=== PATIENT | male | born 1945 | race Caucasian/White ===

== ENCOUNTER → 2020-01-17 09:57 | Outpatient (BNVA) | payer MEDICARE, SELFPAY | PROVIDERS: Family Provider Family Medicine; PCP Family Medicine; Visit Provider Surgery | DX: L98.9 Disorder of the skin and subcutaneous tissue, unspecified (principal); Z85.828 Personal history of other malignant neoplasm of skin | CPT/HCPCS: 88304 ==

== ENCOUNTER 2022-10-28 14:11 | Outpatient (CLI) | payer MEDICARE, SELFPAY ==
--- NOTE | 2022-10-28 14:29 | XR_ITS ---
WS: [id number] SCREENING DEXA SCAN [place] CLINICAL INFORMATION: OTHER SPECIFIED DISORDERS OF BD STRUCTURES COMPARISON: None. FINDINGS: The L1-L4 bone mineral density measures 1.235 g/cm2. This corresponds to a T score score of 0.1 and Z score of 0.0. Left femoral neck bone mineral density measures 0.821 g/cm2. This corresponds to a T score of -1.9 an d Z score of -1.5. Right femoral neck bone mineral density measures 0.851 g/cm2. This corresponds to a T score -1.7of an d Z score of -1.3. Mean femoral neck bone mineral density measures 0.836 g/cm2. This corresponds to a T score of -1.8 an d Z score of -1.4. XR/XR DEXA axial skeleton* [id number] IMPRESSION: Normal bone mineralization lumbar spine. Osteopenia femoral necks. Patient's FRAX calculated 10 year probability for major osteoporotic fracture i s 14.6 % and osteoporotic hip fracture is 5.7%.
== END 2022-10-28 14:12 | disposition home or self-care (01) ==
LOC: RAD 14:12
PROVIDERS: PCP Family Medicine; Visit Provider Family Medicine
DX: M85.88 Other specified disorders of bone density and structure, other site (principal)
CPT/HCPCS: 77080

== ENCOUNTER 2023-05-13 13:13 | Outpatient (CLI) | payer MEDICARE, SELFPAY ==
--- NOTE | 2023-05-13 13:50 | XR_ITS ---
WS: [id number] DEXA (DUAL ENERGY X-RAY ABSORPTIOMETRY) Bone mineral density was performed using a [employer] machine. HISTORY: POSTMENOPAUSAL COMPARISON: 10/28/2022 Lumbar spine BMD (L1-L4): 1.144 g/cm2 T score: -0.6 Z score: -0.7 Total hip BMD: Left: 0.813 g/cm2. T score: -2.0 Z score: -1.6 Right: 0.841 g/cm2. T score: -1.8 Z score: -1.4 10 year probability of a major osteoporotic fracture is 17.7%. Compared to the prior study from 10/28/2022. Lumbar spine bone mineral density has decreased by 7.4%. Bilateral hips bone mineral density has decreased by 1.1%. XR/XR DEXA axial skeleton* [id number] IMPRESSION: OSTEOPENIA. Male patient. Significant decrease in bone mineral density within the lumbar spine since the prior study.
== END 2023-05-13 13:14 | disposition home or self-care (01) ==
PROVIDERS: PCP Family Medicine; Visit Provider Family Medicine
DX: M85.88 Other specified disorders of bone density and structure, other site (principal)
CPT/HCPCS: 77080

== ENCOUNTER → 2023-06-24 08:18 | Outpatient (BNVA) | payer MEDICARE, SELFPAY | PROVIDERS: PCP Family Medicine; Visit Provider Dermatology | DX: C44.519 Basal cell carcinoma of skin of other part of trunk (principal); L82.1 Other seborrheic keratosis; D18.01 Hemangioma of skin and subcutaneous tissue; L81.4 Other melanin hyperpigmentation; D48.5 Neoplasm of uncertain behavior of skin; L57.0 Actinic keratosis | CPT/HCPCS: 11102; 11103; 17000; 99203 ==

== ENCOUNTER → 2023-07-15 08:19 | Outpatient (BNVA) | payer MEDICARE, SELFPAY | PROVIDERS: PCP Family Medicine; Visit Provider Dermatology | DX: C44.619 Basal cell carcinoma of skin of left upper limb, including shoulder (principal) | CPT/HCPCS: 12034; 17313 ==

== ENCOUNTER → 2023-07-29 08:18 | Outpatient (BNVA) | payer MEDICARE, SELFPAY | PROVIDERS: PCP Family Medicine; Visit Provider Dermatology | DX: C44.612 Basal cell carcinoma of skin of right upper limb, including shoulder (principal); C44.519 Basal cell carcinoma of skin of other part of trunk | CPT/HCPCS: 11603; 12035; 17313 ==

== ENCOUNTER → 2023-11-17 14:32 | Outpatient (BNVA) | payer MEDICARE, SELFPAY | PROVIDERS: PCP Family Medicine; Visit Provider Dermatology | DX: L57.0 Actinic keratosis (principal); L85.3 Xerosis cutis; L82.1 Other seborrheic keratosis; L81.4 Other melanin hyperpigmentation; Z85.828 Personal history of other malignant neoplasm of skin | CPT/HCPCS: 17000; 99214 ==

== ENCOUNTER 2024-09-12 10:06 | Inpatient (IN) | payer MEDICARE, SELFPAY ==
[2024-09-12] VITALS (11 sets, daily range): BP systolic 108–154; BP diastolic 72–84; PULSE 77–102; RESP 18–24; TEMP 36.8–37.6; O2SAT 90–93; BMI 42.5; BMI 43.8; BMI 43.7
--- NOTE | 2024-09-12 10:36 | XRR_ITS ---
PROCEDURE INFORMATION: Exam: XR Chest Exam date and time: 09/12/2024 10:42 AM Age: 78 years old Clinical indication: Shortness of breath; Additional info: SOB? TECHNIQUE: Imaging protocol: Radiologic exam of the chest. Views: 1 view. COMPARISON: No relevant prior studies available. FINDINGS: Lungs: Bibasilar linear atelectasis versus scarring. No consolidation. Pleural spaces: Blunted right costophrenic sulcus. No large pleural effusion. No pneumothorax. Heart/Mediastinum: Unremarkable. No cardiomegaly. Vasculature: Aortic arch atherosclerotic calcification. Diaphragm: Suspect asymmetric elevation of the right hemidiaphragm. Bones/joints: Thoracic spondylosis. XR/XR chest 1V portable [id number] IMPRESSION: Suspect asymmetric elevation of the right hemidiaphragm with mild basilar atelectasis versus scarring, possible small right pleural effusion.
--- NOTE | 2024-09-12 10:37 | ED_ITS ---
HPI - Extremity Problem 2 General: Chief complaint: Extremity Problem,Nontraumatic Stated complaint: left leg pain, swollen Time Seen by Provider: 09/12/24 10:28 Source: patient Mode of arrival: wheelchair Limitations: no limitations History of Present Illness: Patient is a 78-year-old male who presents to the ED today with a concern that he might be septic . Patient tells me he is having pain to his left lower extremity. He has known lymphedema to the leg from previous trauma and repeated blood clots . Patient does take rivaroxaban daily for this. He reportedly has not missed any doses for this. Patient states he does not see anybody for his leg. He tries to dress his wounds the best he can. He has not seen his primary care provider in over 4 months. He noticed over the last several days the leg has become increasingly red and odorous and weeping. He states he is having subjective fevers and chills. He complains of back pain but states he has chronic back pain. States he has had a little cough but attributes it to his diagnosis of lifelong asthma . Overall patient is a fairly poor historian. MD Complaint: extremity pain and extremity swelling Onset (ago): day(s) Pain Consistency: constant Location: left and lower extremity Radiation: none Relieving factors: nothing Exacerbating factors: nothing Associated symptoms: Reports fever(s) (subjective); Deny chest pain Context: immobilization Related Data Home Medications Medication Instructions Recorded Confirmed albuterol sulfate 90 mcg/actuation 1 puff inhalation DAILY 01/12/20 09/12/24 aerosol inhaler (Ventolin HFA) furosemide 40 mg tablet (Lasix) 40 mg PO DAILY 01/12/20 09/12/24 lovastatin 40 mg tablet 40 mg PO DAILY 01/12/20 09/12/24 nifedipine 60 mg tablet,extended 60 mg PO BID 01/12/20 09/12/24 release 24 hr rivaroxaban 20 mg tablet (Xarelto) 20 mg PO DAILY 01/12/20 09/12/24 tamsulosin 0.4 mg capsule (Flomax) 0.4 mg PO DAILY 01/12/20 09/12/24 bimatoprost 0.01 % eye drops 1 drp ophthalmic (eye) QPM 09/12/24 09/12/24 (Ted) hydrocodone 7.5 mg-ibuprofen 200 1 tab PO Q4H 09/12/24 09/12/24 mg tablet spironolactone 25 mg tablet 25 mg PO DAILY 09/12/24 09/12/24 Allergies Allergy/AdvReac Type Severity Reaction Status Date / Time acetaminophen [From Tylenol] Allergy Unknown Verified 01/26/20 10:23 aspirin Allergy Unknown Verified 01/26/20 10:23 budesonide [From Symbicort] Allergy Unknown Verified 01/26/20 10:23 formoterol [From Symbicort] Allergy Unknown Verified 01/26/20 10:23 Review of Systems 2 Const: Reports: fever(s) (subjective) and chills Card: Denies: chest pain Resp: Reports: non-productive cough; Denies: dyspnea, wheezing, hemoptysis or chest congestion GI: Denies: abdominal pain, nausea, vomiting or diarrhea : Denies: flank pain or dysuria Musc: Reports: back pain (chronic), extremity pain (L LE) and extremity swelling (L LE) Skin/Breast: Reports: erythema (L LE) Neuro: Denies: headache(s) PFSH ED 2 PFSH: Medical History (Updated 09/12/24 @ 13:10 by ADRIÁN Vick) Hypercholesteremia BPH (benign prostatic hyperplasia) History of cervical fracture Hypertension Asthma History of basal cell carcinoma DVT (deep venous thrombosis) Surgical History History of surgery Benign tumor removed from right lower leg History of tonsillectomy History of facial surgery Reconstruction Status post partial removal of lung Resection benign tumor Family History Father Heart disease Denies family history of Anesthesia complication Bleeding disorder Physical Exam 2 Const: COMMON NORMALS: patient oriented x3, no limitations and alert G ENERAL APPEARANCE: cooperative NUTRITIONAL APPEARANCE: obese O RIENTATION/CONSCIOUSNESS: Yes awake, Yes oriented to person, Yes oriented to place and Yes oriented to time Neck/C-Spine: COMMON NORMALS: full ROM, no lymphadenopathy and no meningeal signs GENERAL: Yes normal visual inspection Resp: COMMON NORMALS: normal respiratory effort and clear to auscultation bilaterally AUSCULTATION: clear to auscultation bilaterally Cardio: COMMON NORMALS: regular rate and regular rhythm RATE: regular rate RHYTHM: regular rhythm GI: COMMON NORMALS: Normal to inspection, nondistended, normoactive bowel sounds present, Soft to palpation and non-tender PALPATION: Yes Soft to palpation Back/Pelvis: COMMON NORMALS: thoracic and lumbar spine normal to inspection and no thoracic nor lumbar tenderness Extremity: COMMON NORMALS: capillary refill normal GENERAL: Yes normal exam except as noted LEFT LOWER EXTREMITY: Yes lower leg OTHER: patient has significant lymphedema involving the left lower extremity; entire lower leg is erythematous with weeping of odorous discharge Neuro: COMMON NORMALS: patient oriented x3, moves all extremities, no focal motor deficits and no sensory deficits noted SENSORIUM/ORIENTATION: Yes alert, Yes oriented to person, Yes oriented to place and Yes oriented to time MENINGEAL SIGNS: Yes no meningeal signs Course 2 Vital Signs: Vital signs: Vital Signs Temperature 98.3 F 09/12/24 10:28 Pulse Rate 81 09/12/24 12:21 Respiratory Rate 24 H 09/12/24 12:17 Blood Pressure 149/84 09/12/24 12:21 Pulse Oximetry 92 09/12/24 12:21 Oxygen Delivery Me thod Room Air 09/12/24 12:21 MDM - Extremity (Nontraumatic) Medical Decision Making Patient is a 78-year-old male here for concerns of infection to his lymphedema involving his left lower extremity. He has had increased pain, redness, and foul-smelling drainage. Bandages were soaked upon arrival. He has had subjective fevers and chills. Vital signs here fairly stable. He was mildly tachycardic at 1 point at 102. White count is 19.2. He has an elevated lactic at 2.9. Creatinine slightly elevated at 1.5 although previous baselines were back in 2019. CXR and UA also obtained. Spoke to Dr. Puentes for admission. He was started on IV Vancomycin and Zosyn. He was given an ideal weight fluid bolus. US of the leg negative for DVT. Medical Records I reviewed the patient's medical records. Lab Data I reviewed the patient's lab results. 09/12/24 11:20 09/12/24 11:20 Radiology Impressions Chest X-Ray 09/12/24 10:36 IMPRESSION: Suspect asymmetric elevation of the right hemidiaphragm with mild basilar atelectasis versus scarring, possible small right pleural effusion. Laboratory Results WBC 19.21 10^3/uL (3.29-11.43) H 09/12/24 11:20 RBC 5.24 10^6/uL (3.85-5.65) 09/12/24 11:20 Hgb 15.00 g/dL (11.27-16.99) 09/12/24 11:20 Hct 45.2 % (37-53) 09/12/24 11:20 MCV 86.3 fl (82-101) 09/12/24 11:20 MCH 28.6 pg (27-33) 09/12/24 11:20 MCHC 33.2 g/dL (30-55) 09/12/24 11:20 RDW 13.4 % (12.1-15.1) 09/12/24 11:20 Plt Count 318 10^3/cmm (157-399) 09/12/24 11:20 MPV 10.7 fL (7.4-10.4) H 09/12/24 11:20 Neut % (Auto) 85.2 % 09/12/24 11:20 Lymph % (Auto) 5.7 % 09/12/24 11:20 [place] % (Auto) 7.9 % 09/12/24 11:20 Eos % (Auto) 0.3 % 09/12/24 11:20 Baso % (Auto) 0.4 % 09/12/24 11:20 Neut # (Auto) 16.37 10^3/uL (1.8-7.7) H 09/12/24 11:20 Lymph # (Auto) 1.1 10^3/uL (0.8-4.8) 09/12/24 11:20 [place] # (Auto) 1.5 10^3/uL (0.2-0.9) H 09/12/24 11:20 Eos # (Auto) 0.1 10^3/uL (0.0-0.8) 09/12/24 11:20 Baso # (Auto) 0.1 10^3/uL (0.0-0.1) 09/12/24 11:20 Nucleated RBC % (auto) 0 % 09/12/24 11:20 Nucleated RBCs # 0.0 /100WBC 09/12/24 11:20 ESR 22 mm/hr (0-10) H 09/12/24 11:20 Sodium 137 mmol/L (136-145) 09/12/24 11:20 Potassium 4.4 mmol/L (3.5-5.1) 09/12/24 11:20 Chloride 102 mmol/L (98-107) 09/12/24 11:20 Carbon Dioxide 23 mmol/L (22-29) 09/12/24 11:20 Anion Gap 16.4 (5-19) 09/12/24 11:20 BUN 18 mg/dL (8-23) 09/12/24 11:20 Creatinine 1.5 mg/dL (0.7-1.2) H 09/12/24 11:20 GFR Calculation Not Reportable 09/12/24 11:20 Glucose 120 mg/dL (65-115) H 09/12/24 11:20 Calculated Osmolality 287 mOsm/kg (285-295) 09/12/24 11:20 Lactic Acid 2.9 mmol/L (0.5-2.2) H 09/12/24 11:20 Calcium 9.9 mg/dL (8.5-10.5) 09/12/24 11:20 Total Bilirubin 0.6 mg/dL (0.15-1.2) 09/12/24 11:20 AST 16 U/L (0-40) 09/12/24 11:20 ALT 14 U/L (0-41) 09/12/24 11:20 Alkaline Phosphatase 74 U/L (40-130) 09/12/24 11:20 C-Reactive Protein 8.3 mg/L (0.0-4.9) H 09/12/24 11:20 Total Protein 7.3 g/dL (6.6-8.7) 09/12/24 11:20 Albumin 3.6 g/dL (3.5-5.2) 09/12/24 11:20 Globulin 3.7 g/dL (1.3-4.6) 09/12/24 11:20 All radiology interpretation(s) finalized by discharge Discharge Plan Discharge Patient Disposition: Admitted As Inpatient Clinical Impression: Cellulitis of left lower extremity, Lymphedema of left lower extremity Condition: Stable Prescriptions: No Action Xarelto 20 mg tablet 20 mg PO DAILY lovastatin 40 mg tablet 40 mg PO DAILY tamsulosin [Flomax] 0.4 mg capsule 0.4 mg PO DAILY nifedipine 60 mg tablet extended release 24hr 60 mg PO BID furosemide [Lasix] 40 mg tablet 40 mg PO DAILY albuterol sulfate [Ventolin HFA] 90 mcg/actuation HFA aerosol inhaler 1 puff inhalation DAILY hydrocodone-ibuprofen 7.5-200 mg tablet 1 tab PO Q4H spironolactone 25 mg tablet 25 mg PO DAILY [place] 0.01 % drops 1 drp ophthalmic (eye) QPM Referrals: Nils Ware MD [Primary Care Provider] - Coding Level of Care Code ED Eye Glass Frame Polisher for Chg Cuca
[2024-09-12 11:46] LABS: Basophils # 0.1 10^3/uL (0.0-0.1); Basophils % 0.4 %; Eosinophils # 0.1 10^3/uL (0.0-0.8); Eosinophils % 0.3 %; Hematocrit 45.2 % (37-53); Lymphocytes # 1.1 10^3/uL (0.8-4.8); Lymphocytes % 5.7 %; Mean Corpuscular HGB Conc 33.2 g/dL (30-55); Mean Corpuscular Hemoglobin 28.6 pg (27-33); Mean Corpuscular Volume 86.3 fl (82-101); Mean Platelet Volume 10.7 fL (7.4-10.4); Monocytes # 1.5 10^3/uL (0.2-0.9); Monocytes % 7.9 %; Neutrophils # 16.37 10^3/uL (1.8-7.7); Neutrophils % 85.2 %; Nucleated Red Blood Cells % 0 %; Platelet Count 318 10^3/cmm (157-399); Red Blood Count 5.24 10^6/uL (3.85-5.65); Red Cell Distribution Width 13.4 % (12.1-15.1); White Blood Count 19.21 10^3/uL (3.29-11.43)
--- NOTE | 2024-09-12 11:55 | USCV_ITS ---
Osvaldo Nick Age: 78 Gender: M : 1945 Exam Date: 09/12/2024 12:54 Ordering Phys: Jackie Mckeon Technologist: CT Exam Location: [facility]_ Indication: redness swelling/ cellulitis PROCEDURES: Venous duplex imaging was performed in only the left lower extremity. On the left side, the common femoral, superficial femoral, profunda femoral, popliteal, posterior tibial, greater saphenous veins, and the peroneal trunk were identified and interrogated in the standard fashion. FINDINGS: Normal 2-D Doppler and augmentation and compressibility throughout the lower extremity venous structures. Additional imaging through the proximal calf veins also reveals no thrombus. Limited evaluation of the greater saphenous vein is patent with no thrombus. CONCLUSIONS No DVT left lower extremity. Dr. Roslyn Santos DO (Electronically Signed) Final Date: 12 September 2024 14:14 S
[2024-09-12 12:07] LABS: Alanine Aminotransferase 14 U/L (0-41); Albumin Level 3.6 g/dL (3.5-5.2); Alkaline Phosphatase 74 U/L (40-130); Aspartate Amino Transferase 16 U/L (0-40); Blood Urea Nitrogen 18 mg/dL (8-23); C Reactive Protein 8.3 mg/L (0.0-4.9); Calcium 9.9 mg/dL (8.5-10.5); Carbon Dioxide 23 mmol/L (22-29); Chloride 102 mmol/L (98-107); Creatinine Clr Calc Pharmacy 54.4251; Globulin 3.7 g/dL (1.3-4.6); Glucose 120 mg/dL (65-115); Osmolality Calculated 287 mOsm/kg (285-295); Sodium 137 mmol/L (136-145); Total Bilirubin 0.6 mg/dL (0.15-1.2); Total Protein 7.3 g/dL (6.6-8.7)
[2024-09-12 12:09] LABS: Lactic Sepsis W/Reflex 2.9 mmol/L (0.5-2.2)
[2024-09-12 12:10] LABS: Erythrocyte Sedimentation Rate 22 mm/hr (0-10)
[2024-09-12 12:11] LABS: Anion Gap 16.4 (5-19); Potassium 4.4 mmol/L (3.5-5.1)
[2024-09-12] MEDS: ondansetron 2 mg/ML SDV 2 mL 4 MG IVP (12:15)
[2024-09-12] MEDS: morphine 4 mg/mL SDV 1 mL IVP (12:17)
[2024-09-12] MEDS: vancomycin 1,250 MG/250 ML PIGGYBACK 166.67 MG IV (12:23)
[2024-09-12 13:22] LABS: Procalcitonin 0.14 ng/mL (0-0.5)
[2024-09-12 13:28] LABS: Reflex Lactate Order REFLEX LACTIC ORDERD
[2024-09-12 13:31] LABS: Add Urine Microscopic? NO
[2024-09-12 13:34] LABS: Covid PCR NEGATIVE (Negative); Influenza A NEGATIVE (Negative); Influenza B NEGATIVE (Negative); Respiratory Syncytial Virus Ce NEGATIVE (Negative)
[2024-09-12 13:34] LABS: Bilirubin Urine Negative (Negative); Blood Urine Negative (Negative); Glucose Urine UA Negative (Normal); Ketones Urine Negative (Negative); Leukocyte Esterase Urine Negative (Negative); Nitrate Urine Negative (Negative); Protein Urine Negative (Negative); Specific Gravity, Urine 1.012 (1.005-1.030); Urine Appearance Clear (CLEAR); Urine Color Yellow (Yellow)
[2024-09-12 13:36] LABS: Add Urine Culture? No; Charge for UA Resulting for Rev
[2024-09-12] MEDS: piperacillin-tazobactam 3.375 GM in sodium chloride 0.9% (plus) 50 ML IV ×2 (14:20→19:35)
[2024-09-12 15:00] LABS: Lactic Acid level (Lactate) 1.9 mmol/L (0.5-2.2)
--- NOTE | 2024-09-12 16:24 | P.PHAVANC_ITS ---
Vancomycin Goal - Goal Vancomycin Goal:: 10-15 mg/L Vancomycin Indication:: Other - Therapy Current therapy:: Pip/Tazo Day of therpy:: Day 1 of [] Actual body weight (kg): 280 lb [place] body weight: 66.1 Dosing weight (kg): 90.46 - Data Labs: WBC 19.21 10^3/uL (3.29-11.43) H 09/12/24 11:20 RBC 5.24 10^6/uL (3.85-5.65) 09/12/24 11:20 Hgb 15.00 g/dL (11.27-16.99) 09/12/24 11:20 Hct 45.2 % (37-53) 09/12/24 11:20 MCV 86.3 fl (82-101) 09/12/24 11:20 MCH 28.6 pg (27-33) 09/12/24 11:20 MCHC 33.2 g/dL (30-55) 09/12/24 11:20 RDW 13.4 % (12.1-15.1) 09/12/24 11:20 Sodium 137 mmol/L (136-145) 09/12/24 11:20 Potassium 4.4 mmol/L (3.5-5.1) 09/12/24 11:20 Chloride 102 mmol/L (98-107) 09/12/24 11:20 Carbon Dioxide 23 mmol/L (22-29) 09/12/24 11:20 Anion Gap 16.4 (5-19) 09/12/24 11:20 BUN 18 mg/dL (8-23) 09/12/24 11:20 Creatinine 1.5 mg/dL (0.7-1.2) H 09/12/24 11:20 GFR Calculation Not Reportable 09/12/24 11:20 Last dialysis session:: N/A Treatment plan:: new consult Regimen:: INITIAL DOSE 1250 MG Q12H PER DOSING PROTOCOL Follow up:: WILL CONTINUE TO MONITOR AND FOLLOW UP DAILY
[2024-09-12] MEDS: NIFEdipine ER (24 hr) 30 mg Tablet 60 MG PO (16:57)
[2024-09-12] MEDS: sodium chloride 0.9% 1,000 ML 75 ML IV (16:57)
[2024-09-12 17:56] LABS: Iron 83 ug/dL (59-158); Vitamin B12 324 pg/mL (232-1245)
--- NOTE | 2024-09-12 18:42 | P.HP_ITS ---
Providers/Chief Complaint 2 Admitting Physician: Ronak Arana MD Primary Care Provider: Nils Ware MD Chief Complaint: left leg pain, swollen History of Present Illness Nick Riley is a 78 year old male with a past medical history of longstanding bilateral lymphedema currently presenting to the hospital with sudden onset of left lower extremity swelling redness warmth and tenderness starting less than 24 hours ago. He was in his usual self of health prior. 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 States that his last episode of cellulitis was over 40 years ago. He has had fever and chills. He was concerned with becoming septic and presented to the hospital for the same. Here he is found to have a leukocytosis of 19,000, febrile. He is not a known diabetic. Denies any past history of CHF, denies past history of CAD. Denies past history of known CAD or COPD. States he is asthmatic. Review of Systems 2 General: Reports: 10 or more systems reviewed and unremarkable except in HPI and below Const: Denies: fever(s), chills or body aches Eyes: Denies: change in vision, blurry vision or photophobia ENMT: Reports: hoarseness; Denies: throat pain, enlarged tonsils, odynophagia or nasal congestion Card: Denies: chest pain, palpitations, irregular heart rhythm, edema, swelling of feet/ankles, lightheadedness, pre-syncope, dyspnea on exertion or orthopnea Resp: Denies: dyspnea, productive cough, non-productive cough, wheezing, stridor, pain on inspiration, change in phlegm color, hemoptysis or chest congestion GI: Denies: abdominal pain, nausea, vomiting, hematemesis, coffee ground emesis, dysphagia, heartburn, diarrhea, constipation, GI cramping, change in stool character, hematochezia or melena : Denies: flank pain, dysuria, urinary frequency, urinary urgency, urinary hesitancy or hematuria Musc: Denies: neck pain, back pain, extremity pain, joint swelling, joint warmth or deformity Neuro: Denies: headache(s), numbness in extremities, weakness in extremities, sensory changes, difficulty walking, frequent falls, dizziness, vertigo, behavioral changes, Slurred speech present or seizure-like activity Psych: Denies: anxiety, depression, suicidal ideation or homicidal ideation Endo: Denies: polyuria, polydipsia, tired all the time, cold intolerance or hot flashes [place]/Lymph: Denies: easy bruising or easy bleeding Medications/Allergies Home Medications Medication Instructions Recorded Confirmed Last Taken Type albuterol sulfate 90 mcg/actuation 1 puff inhalation DAILY 01/12/20 09/12/24 Unknown History aerosol inhaler (Ventolin HFA) furosemide 40 mg tablet (Lasix) 40 mg PO DAILY 01/12/20 09/12/24 09/12/24 History lovastatin 40 mg tablet 40 mg PO DAILY 01/12/20 09/12/24 09/12/24 History nifedipine 60 mg tablet,extended 60 mg PO BID 01/12/20 09/12/24 09/12/24 History release 24 hr rivaroxaban 20 mg tablet (Xarelto) 20 mg PO DAILY 01/12/20 09/12/24 09/12/24 History tamsulosin 0.4 mg capsule (Flomax) 0.4 mg PO DAILY 01/12/20 09/12/24 09/12/24 History bimatoprost 0.01 % eye drops 1 drp ophthalmic (eye) QPM 09/12/24 09/12/24 09/12/24 History ([place]) hydrocodone 7.5 mg-ibuprofen 200 1 tab PO Q4H 09/12/24 09/12/24 09/12/24 History mg tablet spironolactone 25 mg tablet 25 mg PO DAILY 09/12/24 09/12/24 09/12/24 History Allergies Allergy/AdvReac Type Severity Reaction Status Date / Time acetaminophen [From Tylenol] Allergy Unknown Verified 01/26/20 10:23 aspirin Allergy Unknown Verified 01/26/20 10:23 budesonide [From Symbicort] Allergy Unknown Verified 01/26/20 10:23 formoterol [From Symbicort] Allergy Unknown Verified 01/26/20 10:23 PFSH Acute 2 PFSH: Medical History Hypercholesteremia BPH (benign prostatic hyperplasia) History of cervical fracture Hypertension Asthma History of basal cell carcinoma DVT (deep venous thrombosis) Surgical History History of surgery Benign tumor removed from right lower leg History of tonsillectomy History of facial surgery Reconstruction Status post partial removal of lung Resection benign tumor Family History Father Heart disease Denies family history of Anesthesia complication Bleeding disorder Vitals/I&O/Wt Last Vital Signs Temp 99.7 F H 09/12/24 16:22 Pulse 87 09/12/24 16:22 Resp 18 09/12/24 16:22 BP 153/73 09/12/24 16:22 Pulse Ox 91 09/12/24 16:22 O2 Del Method Nasal Cannula 09/12/24 16:36 09/12/24 09/12/24 09/12/24 06:59 14:59 22:59 Intake Total 250 / 250 2102 / 2352 Balance 250 / 250 2102 / 2352 Weight last 48 hrs Weight 126.779 kg Weight 127.006 kg Weight 127.006 kg Physical Exam 2 Narrative: General: No acute distress, AO x3 HEENT: PERRLA, pupils bilaterally equal and reactive, pallors not present Chest: Normal vesicular breath sounds, no added sounds, equal good air entry bilaterally CVS: S1-S2 regular, no murmurs, no tachycardia, no gallops, no rubs Abdomen: Soft, nontender, no organomegaly, bowel sounds present Neuro: No focal deficits, no facial deformity, AO x3, power 5/5 in all limbs Extremities: Left lower extremity with marked cellulitis involving the foot, calf, extending up to the left knee. Data 09/12/24 11:20 09/12/24 11:20 Other Labs: Radiology Impressions Chest X-Ray 09/12/24 10:36 IMPRESSION: Suspect asymmetric elevation of the right hemidiaphragm with mild basilar atelectasis versus scarring, possible small right pleural effusion. Laboratory Results WBC 19.21 10^3/uL (3.29-11.43) H 09/12/24 11:20 RBC 5.24 10^6/uL (3.85-5.65) 09/12/24 11:20 Hgb 15.00 g/dL (11.27-16.99) 09/12/24 11:20 Hct 45.2 % (37-53) 09/12/24 11:20 MCV 86.3 fl (82-101) 09/12/24 11:20 MCH 28.6 pg (27-33) 09/12/24 11:20 MCHC 33.2 g/dL (30-55) 09/12/24 11:20 RDW 13.4 % (12.1-15.1) 09/12/24 11:20 Plt Count 318 10^3/cmm (157-399) 09/12/24 11:20 MPV 10.7 fL (7.4-10.4) H 09/12/24 11:20 Neut % (Auto) 85.2 % 09/12/24 11:20 Lymph % (Auto) 5.7 % 09/12/24 11:20 [place] % (Auto) 7.9 % 09/12/24 11:20 Eos % (Auto) 0.3 % 09/12/24 11:20 Baso % (Auto) 0.4 % 09/12/24 11:20 Neut # (Auto) 16.37 10^3/uL (1.8-7.7) H 09/12/24 11:20 Lymph # (Auto) 1.1 10^3/uL (0.8-4.8) 09/12/24 11:20 [place] # (Auto) 1.5 10^3/uL (0.2-0.9) H 09/12/24 11:20 Eos # (Auto) 0.1 10^3/uL (0.0-0.8) 09/12/24 11:20 Baso # (Auto) 0.1 10^3/uL (0.0-0.1) 09/12/24 11:20 Nucleated RBC % (auto) 0 % 09/12/24 11:20 Nucleated RBCs # 0.0 /100WBC 09/12/24 11:20 ESR 22 mm/hr (0-10) H 09/12/24 11:20 Sodium 137 mmol/L (136-145) 09/12/24 11:20 Potassium 4.4 mmol/L (3.5-5.1) 09/12/24 11:20 Chloride 102 mmol/L (98-107) 09/12/24 11:20 Carbon Dioxide 23 mmol/L (22-29) 09/12/24 11:20 Anion Gap 16.4 (5-19) 09/12/24 11:20 BUN 18 mg/dL (8-23) 09/12/24 11:20 Creatinine 1.5 mg/dL (0.7-1.2) H 09/12/24 11:20 GFR Calculation Not Reportable 09/12/24 11:20 Glucose 120 mg/dL (65-115) H 09/12/24 11:20 Calculated Osmolality 287 mOsm/kg (285-295) 09/12/24 11:20 Lactic Acid 2.9 mmol/L (0.5-2.2) H 09/12/24 11:20 Lactic Acid (Sepsis) 1.9 mmol/L (0.5-2.2) 09/12/24 14:30 Calcium 9.9 mg/dL (8.5-10.5) 09/12/24 11:20 Iron 83 ug/dL (59-158) 09/12/24 11:20 Total Bilirubin 0.6 mg/dL (0.15-1.2) 09/12/24 11:20 AST 16 U/L (0-40) 09/12/24 11:20 ALT 14 U/L (0-41) 09/12/24 11:20 Alkaline Phosphatase 74 U/L (40-130) 09/12/24 11:20 C-Reactive Protein 8.3 mg/L (0.0-4.9) H 09/12/24 11:20 Total Protein 7.3 g/dL (6.6-8.7) 09/12/24 11:20 Albumin 3.6 g/dL (3.5-5.2) 09/12/24 11:20 Globulin 3.7 g/dL (1.3-4.6) 09/12/24 11:20 Vitamin B12 324 pg/mL (232-1245) 09/12/24 11:20 Procalcitonin 0.14 ng/mL (0-0.5) 09/12/24 11:20 TSH 1.80 uIU/mL (0.27-4.20) 09/12/24 11:20 Urine Color Yellow (Yellow) 09/12/24 13:18 Urine Appearance Clear (CLEAR) 09/12/24 13:18 Urine pH 6.0 (5-7) 09/12/24 13:18 Ur Specific [place] 1.012 (1.005-1.030) 09/12/24 13:18 Urine Protein Negative (Negative) 09/12/24 13:18 Urine Glucose (UA) Negative (Normal) 09/12/24 13:18 Urine Ketones Negative (Negative) 09/12/24 13:18 Urine Blood Negative (Negative) 09/12/24 13:18 Urine Nitrate Negative (Negative) 09/12/24 13:18 Urine Bilirubin Negative (Negative) 09/12/24 13:18 Urine Urobilinogen 1.0 mg/dL (Negative) 09/12/24 13:18 Ur Leukocyte Esterase Negative (Negative) 09/12/24 13:18 Amorphous Sediment Not Reportable 09/12/24 13:18 Coronavirus (PCR) Negative (Negative) 09/12/24 12:31 Influenza A (PCR) Negative (Negative) 09/12/24 12:31 Influenza Type B (PCR) Negative (Negative) 09/12/24 12:31 RSV (PCR) Negative (Negative) 09/12/24 12:31 Micro: Microbiology 09/12/24 11:26 Blood Culture - Preliminary Blood SPECIMEN COLLECTED 09/12/24 11:20 Blood Culture - Preliminary Blood SPECIMEN COLLECTED A&P Assessment and plan (1) Cellulitis of left lower extremity: (2) Lymphedema of left lower extremity: Plan 78-year-old male with a past medical history of longstanding lymphedema presenting with acute onset swelling warmth and tenderness of the left lower extremity. He is febrile, leukocytosis of 19,000, elevated lactate, concern that he may be trending towards sepsis. No current signs of endorgan dysfunction at this present time, however high risk of progression. Suspect streptococcal etiology given quick onset of symptoms less than 24 hours. Started on empiric antibiotic treatment with piperacillin/tazobactam and IV vancomycin. Will switch IV vancomycin to linezolid 600 mg IV every 12 hours due to ongoing vancomycin shortage. Closely monitor for improvement over the next 24 to 48 hours Blood cultures taken in the emergency room prior to starting antibiotic treatment. High probability of bacteremia. DVT prophylaxis: Currently on Xarelto which we will continue Full code Attestations 2 Medical Necessity Statement*: Greater than 2 midnight stay is anticipated Coding Level of Care Code Acute Code for Chg Fwd High MDM includes number and complexity of problems actively addressed during encounter, amount and/or complexity of data reviewed/ordered and described risk of complication, morbidity or mortality of management as documented Diagnoses Cellulitis of left lower extremity L03.116 Lymphedema of left lower extremity I89.0
--- NOTE | 2024-09-12 18:44 | ECG_ITS ---
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 Measurements Intervals [place] Rate: 95 P: 0 TX: 0 QRS: 31 QRSD: 89 T: 1 QT: 400 QTc: 505 Interpretive Statements Sinus rhythm with frequent multifocal PVCs PROBABLE INFERIOR MYOCARDIAL INFARCTION , PROBABLY OLD , Compared to previous EKG on 06/07/2017 rhythm is now changed with frequent PVCs Electronically Signed On 09-13-2024 16:53:25 CDT by Samara Quinn M.D. [id number]
[2024-09-12 19:06] LABS: Percent Saturation 31.4 % (20-50); Total Iron Binding Capacity 264 mcg/dl; Unsaturated Iron Binding 181 ug/dL (112-347)
[2024-09-12] MEDS: morphine IR 15 mg Tablet PO ×2 (19:35→23:41)
[2024-09-12 20:41] LABS: Troponin(5th) Baseline 36 ng/L (0-15)
--- NOTE | 2024-09-12 20:44 | ECG_ITS ---
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 Measurements Intervals [place] Rate: 87 P: 0 [place]: 0 QRS: 57 QRSD: 93 T: 54 QT: 321 QTc: 388 Interpretive Statements ATRIAL FIBRILLATION WITH ABERRANT CONDUCTION OR VENTRICULAR PREMATURE COMPLEXES ABNORMAL RHYTHM ECG Compared to ECG 09/12/2024 18:33:51 Ventricular premature complex(es) now present Aberrant conduction of supraventricular beat(s) now present Electronically Signed On 09-13-2024 18:04:53 CDT by Samara Quinn M.D. [id number]
[2024-09-12 20:59] LABS: MRSA PCR OZH (swab) NOT DETECTED (Negative)
[2024-09-12 22:27] LABS: Troponin 5 2HR 36.64 ng/L (0-15); Troponin 5 2HR Delta 0.64 ABS# (0-10)
[2024-09-12] MEDS: linezolid premix 600 MG/300 ML PREMIX 300 MG IV (23:41)
[2024-09-13] VITALS (10 sets, daily range): BP systolic 117–138; BP diastolic 65–78; PULSE 56–84; RESP 16–21; TEMP 36.4–37.1; O2SAT 93–96
--- NOTE | 2024-09-13 01:03 | ECG_ITS ---
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 Measurements Intervals [place] Rate: 69 P: 0 TN: 0 QRS: 49 QRSD: 93 T: 41 QT: 351 QTc: 378 Interpretive Statements ATRIAL FIBRILLATION ABNORMAL RHYTHM ECG Compared to ECG 09/12/2024 20:54:58 Ventricular premature complex(es) no longer present Aberrant conduction of supraventricular beat(s) no longer present Electronically Signed On 09-14-2024 17:22:55 CDT by Samara Quinn M.D. [email or web address]
[2024-09-13 03:25] LABS: Acinetobacter baumannii Not Detected (NOT DETECT); Bacteroides fragilis Not Detected (NOT DETECT); Citrobacter Not Detected (NOT DETECT); Cronobacter sakazakii Not Detected (NOT DETECT); Enterobacter cloacae complex Not Detected (NOT DETECT); Enterobacter non cloacae Not Detected (NOT DETECT); Fusobacterium necrophorum Not Detected (NOT DETECT); Fusobacterium nucleatum Not Detected (NOT DETECT); Haemophilus influenzae Not Detected (NOT DETECT); Klebsiella pneumoniae group Not Detected (NOT DETECT); Morganella morganii Not Detected (NOT DETECT); Neisseria meningitidis Not Detected (NOT DETECT); Pan Candida Not Detected (NOT DETECT); Pan Gram-Positive Not Detected (NOT DETECT); Proteus mirabilis Not Detected (NOT DETECT); Pseudomonas aeruginosa Not Detected (NOT DETECT); Salmonella Not Detected (NOT DETECT); Serratia Not Detected (NOT DETECT); Serratia marcescens Not Detected (NOT DETECT); Stenotrophomonas maltophilia Not Detected (NOT DETECT)
[2024-09-13] MEDS: piperacillin-tazobactam 3.375 GM in sodium chloride 0.9% (plus) 50 ML IV ×3 (04:21→20:59)
[2024-09-13 06:39] LABS: Basophils # 0.1 10^3/uL (0.0-0.1); Basophils % 0.5 %; Eosinophils % 0.2 %; Hematocrit 43.2 % (37-53); Lymphocytes # 1.8 10^3/uL (0.8-4.8); Lymphocytes % 10.7 %; Mean Corpuscular HGB Conc 32.9 g/dL (30-55); Mean Corpuscular Hemoglobin 29.3 pg (27-33); Mean Corpuscular Volume 89.1 fl (82-101); Mean Platelet Volume 10.3 fL (7.4-10.4); Monocytes # 1.3 10^3/uL (0.2-0.9); Monocytes % 7.6 %; Neutrophils # 13.81 10^3/uL (1.8-7.7); Neutrophils % 80.5 %; Nucleated Red Blood Cells % 0 %; Platelet Count 243 10^3/cmm (157-399); Red Blood Count 4.85 10^6/uL (3.85-5.65); Red Cell Distribution Width 13.7 % (12.1-15.1); White Blood Count 17.16 10^3/uL (3.29-11.43)
[2024-09-13 06:50] LABS: Estmated Average Glucose 117; Hemoglobin A1C 5.7 % (4.0-6.0)
[2024-09-13 07:02] LABS: Alanine Aminotransferase 20 U/L (0-41); Albumin Level 2.9 g/dL (3.5-5.2); Alkaline Phosphatase 60 U/L (40-130); Blood Urea Nitrogen 18 mg/dL (8-23); Calcium 8.8 mg/dL (8.5-10.5); Carbon Dioxide 21 mmol/L (22-29); Chloride 105 mmol/L (98-107); Creatinine Clr Calc Pharmacy 53.5642; Globulin 3.5 g/dL (1.3-4.6); Glucose 126 mg/dL (65-115); Osmolality Calculated 285 mOsm/kg (285-295); Phosphorus 3.2 mg/dL (2.5-4.5); Sodium 136 mmol/L (136-145); Total Bilirubin 0.9 mg/dL (0.15-1.2); Total Protein 6.4 g/dL (6.6-8.7)
[2024-09-13 07:07] LABS: Anion Gap 14.1 (5-19); Aspartate Amino Transferase 75 U/L (0-40); Potassium 4.1 mmol/L (3.5-5.1); Troponin 5 6HR 38.26 ng/L (0-15); Troponin 5 6HR Delta 2.26 ng/L (0-12)
[2024-09-13 07:18] LABS: Chol HDL Ratio 3.68 mg/dL (1.0-5.00); Cholesterol 125 mg/dL (0-200); HDL Cholesterol 34 mg/dL (60-100); LDL Cholesterol Calculated 72 mg/dL (50-129); LDL HDL Ratio 2.12 RATIO (0.00-3.22); Triglycerides 97 mg/dL (0-150)
[2024-09-13 07:23] LABS: Folate Level 5.1 ng/mL (4.5-32.2)
[2024-09-13 07:25] LABS: Procalcitonin 0.85 ng/mL (0-0.5)
[2024-09-13] MEDS: rivaroxaban 10 mg Tablet 20 MG PO (09:10)
[2024-09-13] MEDS: NIFEdipine ER (24 hr) 30 mg Tablet 60 MG PO ×2 (09:11→17:07)
[2024-09-13] MEDS: tamsulosin 0.4 mg Capsule PO (09:11)
[2024-09-13] MEDS: atorvastatin 40 mg Tablet PO (09:11)
--- NOTE | 2024-09-13 10:09 | PC.CHAP ---
Pastoral Care Encounter/Spiritual Assessment Type of Contact [] Declined electrical and radio mock up mechanic visit [] Patient/Family/Request visit [] Outpatient visit [] Follow-up visit [] Physician referral [] Code/Alert [] Routine visit [] Staff referral [] Actively dying [] Patient sleeping [] Family support [] [] Out of room [] Palliative care [] [x] Receiving care in room [] Pre-surgical visit [] Trauma [] Long length of stay [] ICU visit [] Other: Relational/Emotional Strength [] Patient feels connected with others/family/visitors/staff [] Distress [] Loneliness/isolation [] Abandonment Spirituality of Patient [] Person of Jenn [] Attends Christian of their Jenn [] Believes in Prayer [] Reads Bible or Latter-Day materials [] There are Spiritual issues to be addressed Medical Radiation Tech Interventions [] Prayer [] Active listening [] Non-anxious presence [] Spiritual/emotional support [] Crisis/trauma care [] Spiritual counseling [] Bereavement support [] Provided bereavement packet [] Provided Bible/devotional materials [] Provided toy/stuffed animal, coloring book to patient or family member [] Provided Communion [] Anointing/[place] [] Salvation [] Completed spiritual assessment [] Other: Impact on Illness or Injury [] Angry [] Fearful [] Anxious [] Often cries [] Exhaustion [] Unable to work [] Unable to attend denominational [] Unable to walk/stand [] Unable to read [] Unable to drive [] Unable to eat/drink [] Unable to sleep [] Unable to be with family [] Patient intubated [] Other: Summary Time spent with patient
[2024-09-13] MEDS: linezolid premix 600 MG/300 ML PREMIX 300 MG IV ×2 (12:16→23:59)
--- NOTE | 2024-09-13 16:30 | P.PN_ITS ---
Subjective 2 Subjective: Stable leukocytosis at 17,000 today. Tmax 99.7. Blood culture reported positive for gram-negative rods overnight. Pain is improving. Cellulitis appears to be improving additionally. Medications: Reviewed: Yes Vitals/I&O/Wt Last Vital Signs Temp 97.6 F 09/13/24 12:00 Pulse 56 L 09/13/24 12:00 Resp 19 H 09/13/24 12:00 BP 117/65 09/13/24 12:00 Pulse Ox 94 09/13/24 12:00 O2 Del Method Nasal Cannula 09/13/24 12:00 O2 Flow Rate 3 09/13/24 00:00 09/13/24 09/13/24 09/13/24 06:59 14:59 22:59 Intake Total 590 / 3335.75 1430 / 1430 Output Total 100 / 250 1275 / 1275 Balance 490 / 3085.75 155 / 155 Weight last 48 hrs Weight 126.824 kg Weight 126.779 kg Weight 127.006 kg Weight 127.006 kg Physical Exam 2 Narrative: General: No acute distress, AO x3 HEENT: PERRLA, pupils bilaterally equal and reactive, pallors not present Chest: Normal vesicular breath sounds, no added sounds, equal good air entry bilaterally CVS: S1-S2 regular, no murmurs, no tachycardia, no gallops, no rubs Abdomen: Soft, nontender, no organomegaly, bowel sounds present Neuro: No focal deficits, no facial deformity, AO x3, power 5/5 in all limbs Extremities: Left lower extremity with marked cellulitis involving the foot, calf, extending up to the left knee. Data 09/13/24 06:03 09/13/24 06:03 Micro: Microbiology 09/12/24 15:34 Gram Stain - Final Leg - #1 Wound Culture - Preliminary 09/12/24 11:20 Blood Culture - Preliminary Blood 09/12/24 11:26 Blood Culture - Preliminary Blood NEGATIVE TO DATE A&P Assessment and plan (1) Cellulitis of left lower extremity: (2) Lymphedema of left lower extremity: (3) Gram-negative bacteremia: Plan 78-year-old male with a past medical history of longstanding lymphedema presenting with acute onset swelling warmth and tenderness of the left lower extremity. He is febrile, leukocytosis of 19,000, elevated lactate, concern that he may be trending towards sepsis. No current signs of endorgan dysfunction at this present time, however high risk of progression. Suspect streptococcal etiology given quick onset of symptoms less than 24 hours. Started on empiric antibiotic treatment with piperacillin/tazobactam and IV vancomycin. Will switch IV vancomycin to linezolid 600 mg IV every 12 hours due to ongoing vancomycin shortage. Closely monitor for improvement over the next 24 to 48 hours Blood cultures taken in the emergency room prior to starting antibiotic treatment. High probability of bacteremia. DVT prophylaxis: Currently on Xarelto which we will continue Full code September 13, 2024. Blood culture reported positive for gram-negative rods overnight. Follow cultures for identification and susceptibility. Check blood culture with a.m. labs for clearance. Leukocytosis is stable. Cellulitis appears to be clinically improving. Continue treatment with piperacillin/tazobactam and linezolid and monitor for continued improvement over the next 24 to 48 hours. Resume home doses of Lasix. Continuing to hold spironolactone due to ASMITA. Patient was retaining 1200 cc of urine today. He had a straight cath. If retains again, to place a Hernandez catheter. Attestations 2 Medical Necessity Statement*: Continued admission for IV antibiotics, gram-negative bacteremia, cellulitis. Coding Level of Care Code Acute Code for [facility] Diagnoses Cellulitis of left lower extremity L03.116 Lymphedema of left lower extremity I89.0 Gram-negative bacteremia R78.81
[2024-09-13] MEDS: FUROsemide 40 mg Tablet PO (17:07)
[2024-09-13] MEDS: morphine IR 15 mg Tablet PO ×2 (17:07→23:56)
--- NOTE | 2024-09-13 22:09 | PC.NURSE ---
MCCAIN: Bladder scanned pt per Dr. Barnes's order. Bladder scan showed 470ml of urine. Mccain placed per protocol for urinary retention. Pt put out 1,300ml of urine immediately upon insertion of catheter.
[2024-09-14] VITALS (9 sets, daily range): BP systolic 110–154; BP diastolic 54–78; PULSE 56–75; RESP 16–19; TEMP 36.5–36.8; O2SAT 90–96; BMI 43.0
[2024-09-14] MEDS: piperacillin-tazobactam 3.375 GM in sodium chloride 0.9% (plus) 50 ML IV ×3 (05:25→22:47)
[2024-09-14 06:25] LABS: Basophils # 0.1 10^3/uL (0.0-0.1); Basophils % 0.5 %; Eosinophils # 0.4 10^3/uL (0.0-0.8); Eosinophils % 3.2 %; Hematocrit 41.1 % (37-53); Lymphocytes # 1.9 10^3/uL (0.8-4.8); Lymphocytes % 14.5 %; Mean Corpuscular HGB Conc 32.4 g/dL (30-55); Mean Corpuscular Hemoglobin 28.8 pg (27-33); Mean Platelet Volume 10.3 fL (7.4-10.4); Monocytes # 1.2 10^3/uL (0.2-0.9); Monocytes % 9.5 %; Neutrophils # 9.18 10^3/uL (1.8-7.7); Neutrophils % 71.8 %; Nucleated Red Blood Cells % 0 %; Platelet Count 230 10^3/cmm (157-399); Red Blood Count 4.62 10^6/uL (3.85-5.65); Red Cell Distribution Width 13.5 % (12.1-15.1)
[2024-09-14 06:44] LABS: Alanine Aminotransferase 20 U/L (0-41); Albumin Level 2.9 g/dL (3.5-5.2); Alkaline Phosphatase 62 U/L (40-130); Aspartate Amino Transferase 57 U/L (0-40); Blood Urea Nitrogen 16 mg/dL (8-23); Carbon Dioxide 24 mmol/L (22-29); Chloride 103 mmol/L (98-107); Creatinine Clr Calc Pharmacy 61.1799; Globulin 3.3 g/dL (1.3-4.6); Glucose 99 mg/dL (65-115); Osmolality Calculated 283 mOsm/kg (285-295); Sodium 136 mmol/L (136-145); Total Bilirubin 0.7 mg/dL (0.15-1.2); Total Protein 6.2 g/dL (6.6-8.7)
[2024-09-14 06:46] LABS: Anion Gap 12.8 (5-19); Potassium 3.8 mmol/L (3.5-5.1)
[2024-09-14] MEDS: FUROsemide 40 mg Tablet PO (08:10)
[2024-09-14] MEDS: tamsulosin 0.4 mg Capsule PO (08:10)
[2024-09-14] MEDS: NIFEdipine ER (24 hr) 30 mg Tablet 60 MG PO ×2 (08:10→20:05)
[2024-09-14] MEDS: spironolactone 25 mg Tablet PO (08:10)
[2024-09-14] MEDS: rivaroxaban 10 mg Tablet 20 MG PO (08:10)
[2024-09-14] MEDS: atorvastatin 40 mg Tablet PO (08:11)
--- NOTE | 2024-09-14 11:39 | P.PN_ITS ---
Subjective 2 Subjective: Patient states that his left lower extremity is much better. He states that it does not get much less swollen that it is nor less red than it currently is. However he still experiencing pain. Vitals/I&O/Wt Last Vital Signs Temp 98.3 F 09/14/24 07:35 Pulse 61 09/14/24 07:35 Resp 18 09/14/24 07:35 BP 134/78 09/14/24 07:35 Pulse Ox 90 09/14/24 07:35 O2 Del Method Nasal Cannula 09/14/24 07:35 O2 Flow Rate 3 09/13/24 21:05 09/13/24 09/14/24 09/14/24 22:59 06:59 14:59 Intake Total 530 / 1960 350 / 2310 200 / 200 Output Total 1300 / 2575 1300 / 3875 Balance -770 / -615 -950 / -1565 200 / 200 Weight last 48 hrs Weight 124.539 kg Weight 126.839 kg Weight 126.824 kg Weight 126.779 kg Weight 127.006 kg Physical Exam 2 Narrative: Elderly male who appears at least 5 years older than stated age. No acute distress Heart regular normal S1-S2 there is a systolic murmur heard best at the left upper sternal border and right upper sternal border Lungs clear to auscultation anteriorly Abdomen obese soft nontender nondistended positive bowel sounds Extremities left lower extremity with lymphedema severe edema in the calf region I could not ascertain actual skin breakdown there was some slight dried blood on the posterior aspect of the left calf otherwise appears to be chronic venous changes with now light pink to purple discoloration around the brown discoloration from venous insufficiency Urinary Catheter Management: Hernandez: Cath Placed During This Visit: yes Reason for Continuing Indwelling Catheter: Acute Urinary Retention or Obstruction Urinary Catheter Date of Insertion: 09/13/24 Urinary Catheter Time of Insertion: 22:02 Data 09/14/24 05:43 09/14/24 05:43 Micro: Microbiology 09/12/24 15:34 Gram Stain - Final Leg - #1 Wound Culture - Preliminary Coag positive Staphylococcus Coag positive Staphylococcus#2 09/14/24 05:43 Blood Culture - Preliminary Blood SPECIMEN COLLECTED 09/14/24 05:43 Blood Culture - Preliminary Blood SPECIMEN COLLECTED 09/12/24 11:20 Blood Culture - Preliminary Blood 10/29/24 11:26 Blood Culture - Preliminary Blood NEGATIVE TO DATE A&P Assessment and plan (1) Gram-negative bacteremia: Patient currently has 4 out of 4 blood cultures growing an anaerobic bacterium these cultures are being set and hopefully results tomorrow. He is being covered for anaerobes with Zosyn no change in coverage at this time (2) Lymphedema of left lower extremity: Patient describes longstanding lymphedema of the lower extremity for which she wears stockings. He did not report lymphedema wraps. (3) Cellulitis of left lower extremity: Microbiology called me to report the wound cultures growing rare negative rods and gram positive cocci I believe these will be plated and further identified as well (4) Wound infection: As above. However inspection of the lower extremity I did not find an open wound per se. There was minimal bloody drainage in general along the most posterior aspect of the calf Plan Continue antibiotics await micro identification and sensitivities. Will check echo for underlying heart disease contributing to worsening lymphedema. Otherwise PT to evaluate for activity And assess for pain control Attestations 2 Medical Necessity Statement*: Patient continues to require hospitalization for IV antibiotics due to bacteremia. Total care will expect to cross 2 midnight Coding Level of Care [facility] Diagn[facility] Gram-negative bacteremia R78.81 Lymphedema of left lower extremity I89.0 Cellulitis of left lower extremity L03.116 Wound infection T14.8XXA; L08.9
--- NOTE | 2024-09-14 11:49 | USCV_ITS ---
OsvaldoNick Age: 78 Gender: M : 1945 Exam Date: 09/14/2024 19:29 Ordering Phys: Ruddy Melgar DO Technologist: KURT Exam Location: [facility] [place] Indication: lymphedema BP: 133 / 67 HR: 75 Rhythm: Sinus Technical Quality: mostly sinus rhythm, mult PVCs, some Afib MEASUREMENTS (Male / Female) Normal Values 2D ECHO LV Diastolic Diameter PLAX 4.7 cm 4.2 - 5.9 / 3.9 - 5.3 cm IVS Diastolic Thickness 2.1 cm 0.6 - 1.0 / 0.6 - 0.9 cm IVS Systolic Thickness 2.1 cm LVPW Diastolic Thickness 1.9 cm 0.6 - 1.0 / 0.6 - 0.9 cm LVPW Systolic Thickness 2.4 cm LVOT Diameter 2.1 cm LV Ejection Fraction 2D Teich 57.3 % LV Ejection Fraction MOD 4C 54.0 % LV Ejection Fraction MOD 2C 71.9 % LV Ejection Fraction 2C AL 73.9 % LA Diameter 6.3 cm Aorta at Sinotubular Diameter 2.4 cm IVC Diameter 1.6 cm M-MODE LA Ao Ratio MM 2.0 AV Cusp Separation MM 2.1 cm DOPPLER AV Peak Velocity 389.0 cm/s LVOT Peak Velocity 121.0 cm/s AV Area Cont Eq vti 1.1 cm squared AV Area Cont Eq pk 1.1 cm squared MV Peak Velocity 160.0 cm/s MV Area PHT 3.4 cm squared Mitral E to A Ratio 2.0 TR Peak Velocity 307.0 cm/s TR Peak Gradient 37.7 mmHg TV Peak E Velocity 54.0 cm/s Right Atrial Pressure 10.0 mmHg Pulmonary Artery Systolic Pressu 47.7 mmHg PV Peak Velocity 111.0 cm/s FINDINGS Left Ventricle Mild left ventricle hypertrophy. Normal LV systolic function. Normal wall motion and thickening. Estimated LVEF normal 60%. Right Ventricle Normal right ventricular size and systolic function. Right Atrium Normal right atrial size. Left Atrium Dilated left atrium. Mitral Valve Thickened mitral valve. There is mild to moderate mitral regurgitation with a central jet. No mitral stenosis. Aortic Valve Thickened and calcified aortic valve with reduced opening. There is moderate aortic stenosis (AV max gradient 60 mmHg, mean gradient 33 mmHg, AV max velocity 3.8 m/s and calculated valve area 1.1 cm squared). Tricuspid Valve Mildly thickened tricuspid valve. Mild tricuspid valve regurgitation. Elevated tricuspid peak gradient (37 mmHg). Pulmonic Valve Pulmonic valve not well visualized. Mild pulmonary valve regurgitation. Pericardium No pericardial effusion. Aorta Normal size aortic root and proximal ascending aorta. IVC Normal inferior vena cava. CONCLUSIONS Mild left ventricular hypertrophy. Normal systolic function. LVEF normal 60%. Dilated left atrium with mild to moderate mitral regurgitation. Moderate aortic stenosis (AV max gradient 60 mmHg, mean gradient 33 mmHg, AV max velocity 3.8 m/s, calculated valve area 1.1 cm squared). Moderately elevated pulmonary artery systolic pressure (45 mmHg). Samara Quinn MD (Electronically Signed) Final Date: 15 September 2024 09:29 S
[2024-09-14] MEDS: linezolid premix 600 MG/300 ML PREMIX 300 MG IV (12:46)
[2024-09-14] MEDS: morphine IR 15 mg Tablet PO (20:11)
[2024-09-15] VITALS (15 sets, daily range): BP systolic 115–164; BP diastolic 58–81; PULSE 57–78; RESP 16–22; TEMP 36.4–36.8; O2SAT 90–95
[2024-09-15] MEDS: linezolid premix 600 MG/300 ML PREMIX 300 MG IV ×3 (00:02→23:31)
[2024-09-15] MEDS: piperacillin-tazobactam 3.375 GM in sodium chloride 0.9% (plus) 50 ML IV ×3 (06:15→22:41)
[2024-09-15] MEDS: atorvastatin 40 mg Tablet PO ×2 (08:45→20:24)
[2024-09-15] MEDS: FUROsemide 40 mg Tablet PO ×2 (08:46→16:20)
[2024-09-15] MEDS: tamsulosin 0.4 mg Capsule PO ×2 (08:46→20:25)
[2024-09-15] MEDS: spironolactone 25 mg Tablet PO (08:46)
[2024-09-15] MEDS: rivaroxaban 10 mg Tablet 20 MG PO (08:46)
[2024-09-15] MEDS: NIFEdipine ER (24 hr) 30 mg Tablet 60 MG PO ×2 (08:47→17:49)
--- NOTE | 2024-09-15 11:08 | PC.SOCIAL ---
IMM Updated Updated pt on IMM. No questions voiced. Provided pt a copy. Initialed, dated, & timed a copy & placed in chart.
--- NOTE | 2024-09-15 12:00 | P.PN_ITS ---
Subjective 2 Subjective: Complains of pain on left outer hip and in left lower leg Reports that he has always had asthma in his primary care physician does not want him to be on prednisone. He lists budesonide and for formoterol as allergies however he states they just did not work. Vitals/I&O/Wt Last Vital Signs Temp 97.8 F 09/15/24 11:40 Pulse 72 09/15/24 11:40 Resp 22 H 09/15/24 11:40 BP 147/81 09/15/24 11:40 Pulse Ox 95 09/15/24 11:40 O2 Del Method Room Air 09/15/24 11:40 O2 Flow Rate 3 09/15/24 08:11 09/14/24 09/15/24 09/15/24 22:59 06:59 14:59 Intake Total 290 / 1080 350.00 / 1430.00 410 / 410 Output Total 1300 / 1300 1000 / 2300 Balance -1010 / -220 -650.00 / -870.00 410 / 410 Weight last 48 hrs Weight 124.965 kg Weight 126.127 kg Weight 124.539 kg Weight 124.539 kg Physical Exam 2 Narrative: Elderly male who appears at least 5 years older than stated age. No acute distress Heart regular normal S1-S2 there is a systolic murmur heard best at the left upper sternal border and right upper sternal border Lungs expiratory wheezes heard today. More short of breath sitting up in bed Abdomen obese soft nontender nondistended positive bowel sounds Extremities left lower extremity with lymphedema severe edema in the RIGHT calf. chronic venous changes with now light pink to purple discoloration around the brown discoloration from venous insufficiency. No significant change today although seen in the seated position with slightly more dependent edema Urinary Catheter Management: Hernandez: Cath Placed During This Visit: yes Reason for Continuing Indwelling Catheter: Acute Urinary Retention or Obstruction Urinary Catheter Date of Insertion: 09/13/24 Urinary Catheter Time of Insertion: 22:02 Data 09/14/24 05:43 09/14/24 05:43 Micro: Microbiology 09/14/24 05:43 Blood Culture - Preliminary Blood NEGATIVE TO DATE 09/14/24 05:43 Blood Culture - Preliminary Blood NEGATIVE TO DATE 09/12/24 15:34 Gram Stain - Final Leg - #1 Wound Culture - Preliminary Coag positive Staphylococcus Coag positive Staphylococcus#2 A&P Assessment and plan (1) Gram-negative bacteremia: Patient currently has 4 out of 4 blood cultures growing gram-negative rods. Per micro these appear to be anaerobic. Likely a bacillus. Continue current antibiotics. Await culture results and sensitivities. Will likely require 2 weeks of IV antibiotics. Case management notified and will evaluate for jail placement (2) Lymphedema of left lower extremity: Patient describes longstanding lymphedema of the lower extremity for which he has worn stockings. He did not report lymphedema wraps. Would likely benefit from appropriate lymphedema care in the future at the wound clinic. Recommend referral to wound clinic on discharge (3) Cellulitis of left lower extremity: Wound is growing gram-positive cocci: Staph. Await sensitivities (4) Wound infection: (5) Mitral regurgitation and aortic stenosis: Cardiology consult as an outpatient Will add MARCUS inhibitor for blood pressure control And for cardiac protection (6) Morbid obesity with BMI of 40.0-44.9, adult: Plan Continue antibiotics await micro identification and sensitivities. Echo shows normal EF however mild left ventricular hypertrophy dilated left atrium with moderate mitral regurgitation and moderate aortic stenosis. PT eval shows independent for balance and strength independent for bed and chair transfers, walk 75 feet with assistive device and O2 as needed. Plan for home exercise program Asthma. Patient with wheezes today will start budesonide inhaler twice daily and assess for allergy. Patient reports this not helping in the past but unclear if he is given it adequate time to work. Attestations 2 Medical Necessity Statement*: Patient continues to require hospitalization for IV antibiotics due to bacteremia. Total care will expect to cross 2 midnight Coding Level of Care Code Acute Code for [facility] Diagnoses Gram-negative bacteremia R78.81 Lymphedema of left lower extremity I89.0 Cellulitis of left lower extremity L03.116 Wound infection T14.8XXA; L08.9 Mitral regurgitation and aortic stenosis I08.0 Morbid obesity with BMI of 40.0-44.9, adult E66.01; Z68.41
--- NOTE | 2024-09-15 16:15 | PC.NURSE ---
Catheter: Hernandez catheter advanced due to poor draining. Upon advancing, a total of 500 ml out. Urine is blood tinged after the advance. Physician notified.
[2024-09-15] MEDS: albuterol 2.5 mg/3 mL Neb INHALATION ×2 (16:47→20:16)
[2024-09-15] MEDS: budesonide 0.5 mg/2 mL Neb INHALATION (20:16)
[2024-09-16] VITALS (15 sets, daily range): BP systolic 117–147; BP diastolic 61–82; PULSE 50–70; RESP 16–20; TEMP 36.4–36.8; O2SAT 91–96; BMI 42.3
[2024-09-16] MEDS: albuterol 2.5 mg/3 mL Neb INHALATION ×3 (00:25→20:17)
[2024-09-16] MEDS: morphine IR 15 mg Tablet PO ×2 (01:47→22:47)
[2024-09-16] MEDS: piperacillin-tazobactam 3.375 GM in sodium chloride 0.9% (plus) 50 ML IV (06:08)
[2024-09-16] MEDS: budesonide 0.5 mg/2 mL Neb INHALATION ×2 (07:50→20:17)
[2024-09-16] MEDS: rivaroxaban 10 mg Tablet 20 MG PO (09:01)
[2024-09-16] MEDS: NIFEdipine ER (24 hr) 30 mg Tablet 60 MG PO ×2 (09:02→17:44)
[2024-09-16] MEDS: FUROsemide 40 mg Tablet PO ×2 (09:02→16:50)
[2024-09-16] MEDS: spironolactone 25 mg Tablet 50 MG PO (09:02)
[2024-09-16] MEDS: lisinopril 5 mg Tablet PO (09:02)
[2024-09-16] MEDS: linezolid premix 600 MG/300 ML PREMIX 300 MG IV (12:10)
--- NOTE | 2024-09-16 16:05 | P.PN_ITS ---
Subjective 2 Subjective: Reports feeling better today. Left lower extremity is significantly improved compared to previously. Blood culture today identifies gram-negative rods as Pasteurella. Susceptibility testing is not available. Medications: Reviewed: Yes Vitals/I&O/Wt Last Vital Signs Temp 97.6 F 09/16/24 12:00 Pulse 56 L 09/16/24 12:00 Resp 16 09/16/24 12:00 BP 147/77 09/16/24 12:00 Pulse Ox 95 09/16/24 12:00 O2 Del Method Nasal Cannula 09/16/24 15:51 O2 Flow Rate 3 09/16/24 11:35 09/16/24 09/16/24 09/16/24 06:59 14:59 22:59 Intake Total 470 / 1590 1024 / 1024 Output Total 950 / 2500 Balance -480 / -910 1024 / 1024 Weight last 48 hrs Weight 124.829 kg Weight 122.47 kg Weight 125.333 kg Weight 124.965 kg Physical Exam 2 Narrative: General: No acute distress, AO x3 HEENT: PERRLA, pupils bilaterally equal and reactive, pallors not present Chest: Normal vesicular breath sounds, no added sounds, equal good air entry bilaterally CVS: S1-S2 regular, no murmurs, no tachycardia, no gallops, no rubs Abdomen: Soft, nontender, no organomegaly, bowel sounds present Neuro: No focal deficits, no facial deformity, AO x3, power 5/5 in all limbs Extremities: Left lower extremity with marked cellulitis involving the foot, calf, extending up to the left knee. Urinary Catheter Management: Hernandez: Cath Placed During This Visit: yes Reason for Continuing Indwelling Catheter: Acute Urinary Retention or Obstruction Urinary Catheter Date of Insertion: 09/13/24 Urinary Catheter Time of Insertion: 22:02 Data 09/14/24 05:43 09/14/24 05:43 Micro: Microbiology 09/12/24 11:26 Blood Culture - Final Blood Pasteurella multocida 09/12/24 11:20 Blood Culture - Final Blood Pasteurella multocida A&P Assessment and plan (1) Cellulitis of left lower extremity: (2) Lymphedema of left lower extremity: (3) Gram-negative bacteremia: Plan 78-year-old male with a past medical history of longstanding lymphedema presenting with acute onset swelling warmth and tenderness of the left lower extremity. He is febrile, leukocytosis of 19,000, elevated lactate, concern that he may be trending towards sepsis. No current signs of endorgan dysfunction at this present time, however high risk of progression. Suspect streptococcal etiology given quick onset of symptoms less than 24 hours. Started on empiric antibiotic treatment with piperacillin/tazobactam and IV vancomycin. Will switch IV vancomycin to linezolid 600 mg IV every 12 hours due to ongoing vancomycin shortage. Closely monitor for improvement over the next 24 to 48 hours Blood cultures taken in the emergency room prior to starting antibiotic treatment. High probability of bacteremia. DVT prophylaxis: Currently on Xarelto which we will continue Full code September 13, 2024. Blood culture reported positive for gram-negative rods overnight. Follow cultures for identification and susceptibility. Check blood culture with a.m. labs for clearance. Leukocytosis is stable. Cellulitis appears to be clinically improving. Continue treatment with piperacillin/tazobactam and linezolid and monitor for continued improvement over the next 24 to 48 hours. Resume home doses of Lasix. Continuing to hold spironolactone due to ASMITA. Patient was retaining 1200 cc of urine today. He had a straight cath. If retains again, to place a Hernandez catheter. Plan September 16, 2024. Blood culture now identified as Pasteurella multocida. Blood culture cleared subsequently from September 14, 2024. Will plan on total 14 days of antibiotics. Since sensitivity testing is not available, will transition to IV ceftriaxone 1 g every 24 hours to complete total duration of 14 days. Midline to facilitate the above. Wound culture growing coag positive Staphylococcus, likely Staph aureus, further identification pending. Continuing linezolid for this reason. Creatinine N/a today. recheck cr with am labs. Patient has cats at home. Instructed to keep the cat away from his foot. Attestations 2 Medical Necessity Statement*: Change IV antibiotics today. Midline to facilitate home IV antibiotics. Plan on discharge with ceftriaxone for 10 days. Coding Level of Care Code Acute Code for [facility] Fwd High MDM includes number and complexity of problems actively addressed during encounter, amount and/or complexity of data reviewed/ordered and described risk of complication, morbidity or mortality of management as documented Diagnoses Cellulitis of left lower extremity L03.116 Lymphedema of left lower extremity I89.0 Gram-negative bacteremia R78.81
--- NOTE | 2024-09-16 16:34 | PICC.NOTE ---
Midline placed to left brachial vein. Referred to vascular access nurse for midline placement due to need for IV antibiotics x 10 days. Risks and benefits discussed and informed consent obtained from pt. Left arm assessed with left brachial vein measuring 3.5 mm, straight, and apparent best choice for placement. Using sterile technique and MST, left brachial vein accessed x 1 stick. Mid-arm circumference measured 10 cm from left AC 36 cm. Trimmed cath 12 cm with 0 cm external length noted. Line secured with stat-lock. Insertion site covered with Biopatch and TSM. Report given to bedside nurse, NASIM Castro.
[2024-09-16] MEDS: cefTRIAXone 1,000 mg SDV 1000 MG IVP (16:50)
[2024-09-16] MEDS: linezolid 600 mg Tablet PO (17:44)
[2024-09-16] MEDS: atorvastatin 40 mg Tablet PO (20:17)
[2024-09-16] MEDS: tamsulosin 0.4 mg Capsule PO (20:17)
--- NOTE | 2024-09-16 20:21 | PC.RESP ---
Patient requested that he is not waken by Respiratory for a treatment later if asleep!
[2024-09-17] VITALS (9 sets, daily range): BP systolic 110–157; BP diastolic 70–86; PULSE 54–73; RESP 16–20; TEMP 36.6–37.6; O2SAT 94–96
[2024-09-17 03:30] LABS: Basophils # 0.1 10^3/uL (0.0-0.1); Basophils % 0.7 %; Eosinophils # 0.3 10^3/uL (0.0-0.8); Eosinophils % 2.8 %; Hematocrit 41.3 % (37-53); Lymphocytes # 2.3 10^3/uL (0.8-4.8); Lymphocytes % 19.4 %; Mean Corpuscular Hemoglobin 28.4 pg (27-33); Mean Platelet Volume 10.2 fL (7.4-10.4); Monocytes # 1.2 10^3/uL (0.2-0.9); Monocytes % 10.5 %; Neutrophils % 65.7 %; Nucleated Red Blood Cells % 0 %; Platelet Count 266 10^3/cmm (157-399); Red Blood Count 4.64 10^6/uL (3.85-5.65); Red Cell Distribution Width 13.5 % (12.1-15.1); White Blood Count 11.73 10^3/uL (3.29-11.43)
[2024-09-17 03:53] LABS: Alanine Aminotransferase 25 U/L (0-41); Alkaline Phosphatase 74 U/L (40-130); Aspartate Amino Transferase 29 U/L (0-40); Blood Urea Nitrogen 17 mg/dL (8-23); Calcium 8.8 mg/dL (8.5-10.5); Carbon Dioxide 27 mmol/L (22-29); Chloride 105 mmol/L (98-107); Creatinine Clr Calc Pharmacy 66.3641; Globulin 3.3 g/dL (1.3-4.6); Glucose 103 mg/dL (65-115); Osmolality Calculated 292 mOsm/kg (285-295); Sodium 140 mmol/L (136-145); Total Bilirubin 0.4 mg/dL (0.15-1.2); Total Protein 6.3 g/dL (6.6-8.7)
[2024-09-17] MEDS: linezolid 600 mg Tablet PO (04:39)
[2024-09-17] MEDS: rivaroxaban 10 mg Tablet 20 MG PO (09:19)
[2024-09-17] MEDS: FUROsemide 40 mg Tablet PO ×2 (09:19→17:33)
[2024-09-17] MEDS: spironolactone 25 mg Tablet 50 MG PO (09:19)
[2024-09-17] MEDS: NIFEdipine ER (24 hr) 30 mg Tablet 60 MG PO ×2 (09:19→17:32)
[2024-09-17] MEDS: lisinopril 5 mg Tablet PO (09:19)
[2024-09-17] MEDS: morphine IR 15 mg Tablet PO (17:32)
[2024-09-17] MEDS: cefTRIAXone 1,000 mg SDV 1000 MG IVP (17:33)
--- NOTE | 2024-09-17 17:57 | PM.PN ---
Subjective Subjective: Complains of acutely worsening back pain today. Patient had been complaining of left hip and back pain initially on the day of admission which was significantly improved during the course of this hospitalization. However reports today that his pain is worsened again. He is having a hard time turning sides. There is some tenderness to palpation over the lower lumbar spine. 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 Medications: Reviewed: Yes Vitals/I&O/Wt Last Vital Signs Temp 98.3 F 09/17/24 16:00 Pulse 54 L 09/17/24 16:00 Resp 16 09/17/24 17:32 BP 144/86 09/17/24 16:00 Pulse Ox 94 09/17/24 16:00 O2 Del Method Room Air 09/17/24 16:00 O2 Flow Rate 3 09/17/24 12:00 09/17/24 09/17/24 09/17/24 06:59 14:59 22:59 Output Total 350 / 350 Balance -350 / -350 Weight last 48 hrs Weight 124.829 kg Weight 122.47 kg Physical Exam Narrative: General: No acute distress, AO x3 HEENT: PERRLA, pupils bilaterally equal and reactive, pallors not present Chest: Normal vesicular breath sounds, no added sounds, equal good air entry bilaterally CVS: S1-S2 regular, no murmurs, no tachycardia, no gallops, no rubs Abdomen: Soft, nontender, no organomegaly, bowel sounds present Neuro: No focal deficits, no facial deformity, AO x3, power 5/5 in all limbs Extremities: Left lower extremity cellulitis is resolved. Urinary Catheter Management: Hernandez: Cath Placed During This Visit: yes Reason for Continuing Indwelling Catheter: Acute Urinary Retention or Obstruction Urinary Catheter Date of Insertion: 09/13/24 Urinary Catheter Time of Insertion: 22:02 Data 09/17/24 03:14 09/17/24 03:14 Micro: Microbiology 09/12/24 15:34 Gram Stain - Final Leg - #1 Wound Culture - Final Staphylococcus aureus Micrococcus and related genera 09/12/24 11:26 Blood Culture - Final Blood Pasteurella multocida 09/12/24 11:20 Blood Culture - Final Blood Pasteurella multocida A&P Assessment and plan (1) Cellulitis of left lower extremity: (2) Lymphedema of left lower extremity: (3) Gram-negative bacteremia: Plan 78-year-old male with a past medical history of longstanding lymphedema presenting with acute onset swelling warmth and tenderness of the left lower extremity. He is febrile, leukocytosis of 19,000, elevated lactate, concern that he may be trending towards sepsis. No current signs of endorgan dysfunction at this present time, however high risk of progression. Suspect streptococcal etiology given quick onset of symptoms less than 24 hours. Started on empiric antibiotic treatment with piperacillin/tazobactam and IV vancomycin. Will switch IV vancomycin to linezolid 600 mg IV every 12 hours due to ongoing vancomycin shortage. Closely monitor for improvement over the next 24 to 48 hours Blood cultures taken in the emergency room prior to starting antibiotic treatment. High probability of bacteremia. DVT prophylaxis: Currently on Xarelto which we will continue Full code September 13, 2024. Blood culture reported positive for gram-negative rods overnight. Follow cultures for identification and susceptibility. Check blood culture with a.m. labs for clearance. Leukocytosis is stable. Cellulitis appears to be clinically improving. Continue treatment with piperacillin/tazobactam and linezolid and monitor for continued improvement over the next 24 to 48 hours. Resume home doses of Lasix. Continuing to hold spironolactone due to ASMITA. Patient was retaining 1200 cc of urine today. He had a straight cath. If retains again, to place a Hernandez catheter. Plan September 16, 2024. Blood culture now identified as Pasteurella multocida. Blood culture cleared subsequently from September 14, 2024. Will plan on total 14 days of antibiotics. Since sensitivity testing is not available, will transition to IV ceftriaxone 1 g every 24 hours to complete total duration of 14 days. Midline to facilitate the above. Wound culture growing coag positive Staphylococcus, likely Staph aureus, further identification pending. Continuing linezolid for this reason. Creatinine N/a today. recheck cr with am labs. Patient has cats at home. Instructed to keep the cat away from his foot. September 17, 2024. Patient received midline yesterday. Blood culture with Pasteurella multocida. Wound culture with MSSA and micrococcus species. Instructed to keep his animals away from his leg in the future. Discontinue linezolid. Most micrococcus species are susceptible to beta-lactam's therefore we will narrow antibiotic coverage to ceftriaxone 1 g IV every 24 hours at the time of discharge which should adequately cover all organisms discovered. Patient will need case management (not available on the weekend) to set up his home IV antibiotic infusions. Will likely discharge with Hernandez catheter as had significant urinary retention. Patient will need to establish with urology as outpatient. Reports significantly worsening back pain today. He had back pain and left hip and leg pain initially upon admission which was significantly improved as the cellulitis was being treated, however reports worsening today. Will obtain CT of the back to assess for any pathological fracture. There is some tenderness to palpation over the lower lumbosacral spine. Performing this study without contrast due to recently recovered ASMITA. Attestations Medical Necessity Statement*: Needs case management to set up his home IV antibiotic infusions. CT of the lumbar spine today. Coding Level of Care Code Acute Code for [facility] Diagnoses Cellulitis of left lower extremity L03.116 Lymphedema of left lower extremity I89.0 Gram-negative bacteremia R78.81
--- NOTE | 2024-09-17 18:01 | CTR_ITS ---
PROCEDURE INFORMATION: Exam: CT Lumbar Spine Without Contrast Exam date and time: 09/18/2024 2:11 AM Age: 78 years old Clinical indication: Patient HX: C/O worsening low back pain. History of bph and basal cell carcinoma. ; Additional info: Back pain, tenderness, acute worsening of back pain, assess for pathological TECHNIQUE: Imaging protocol: Computed tomography of the lumbar spine without contrast. Radiation optimization: All CT scans at this facility use at least one of these dose optimization techniques: automated exposure control; mA and/or kV adjustment per patient size (includes targeted exams where dose is matched to clinical indication); or iterative reconstruction. COMPARISON: No relevant prior studies available. RADIATION DOSE METRICS: Total DLP (mGy-cm): 1337.06 FINDINGS: Bones/joints: No acute fracture. Normal alignment. No significant disc bulge or herniation. No severe spinal canal stenosis. No significant neural foraminal narrowing. Degenerative disc space narrowing and osteophyte formation at L2-L3 and L5-S1 . Soft tissues: Unremarkable. CT/CT lumbar spine wo con* [id number] IMPRESSION: No acute findings. Degenerative changes at L2-L3 and L5-S1.
[2024-09-17] MEDS: atorvastatin 40 mg Tablet PO (21:21)
[2024-09-17] MEDS: tamsulosin 0.4 mg Capsule PO (21:21)
[2024-09-18] VITALS (12 sets, daily range): BP systolic 112–135; BP diastolic 55–78; PULSE 53–73; RESP 16–20; TEMP 36.5–36.9; O2SAT 91–95
[2024-09-18] MEDS: rivaroxaban 10 mg Tablet 20 MG PO (09:09)
[2024-09-18] MEDS: spironolactone 25 mg Tablet 50 MG PO (09:09)
[2024-09-18] MEDS: FUROsemide 40 mg Tablet PO ×2 (09:09→16:25)
[2024-09-18] MEDS: budesonide 0.5 mg/2 mL Neb INHALATION (09:11)
[2024-09-18] MEDS: lisinopril 5 mg Tablet PO (09:13)
[2024-09-18] MEDS: NIFEdipine ER (24 hr) 30 mg Tablet 60 MG PO ×2 (09:14→17:38)
--- NOTE | 2024-09-18 10:04 | PC.SOCIAL ---
IMM Update Pg. 2 of IMM updated and copy provided at bedside.
--- NOTE | 2024-09-18 14:45 | P.PN_ITS ---
Subjective 2 Subjective: Patient with suprapubic discomfort. Hernandez seems to be draining adequate urine. However have discussed with nursing staff to flush Hernandez to ensure no obstruction and patient not retaining. Hernandez was placed for urinary retention. Otherwise he is resting comfortably in bed. Urine culture reviewed. Patient to go home on IV antibiotics for another [address] lumbar without any fractures at this time. Vitals/I&O/Wt Last Vital Signs Temp 97.7 F 09/18/24 10:00 Pulse 69 09/18/24 10:00 Resp 17 09/18/24 10:00 BP 135/71 09/18/24 10:00 Pulse Ox 94 09/18/24 10:00 O2 Del Method Room Air 09/18/24 10:00 O2 Flow Rate 3 09/18/24 08:00 09/17/24 09/18/24 09/18/24 22:59 06:59 14:59 Output Total 500 / 850 250 / 1100 540 / 540 Balance -500 / -850 -250 / -1100 -540 / -540 Weight last 48 hrs Weight 121.064 kg Physical Exam 2 Narrative: General: No acute distress, AO x3 HEENT: PERRLA, pupils bilaterally equal and reactive, pallors not present Chest: Normal vesicular breath sounds, no added sounds, equal good air entry bilaterally CVS: S1-S2 regular, no murmurs, no tachycardia, no gallops, no rubs Abdomen: Soft, nontender, no organomegaly, bowel sounds present, mild suprapubic tenderness present. Neuro: No focal deficits, no facial deformity, AO x3, power 5/5 in all limbs Extremities: Left lower extremity cellulitis is resolved. Urinary Catheter Management: Hernandez: Cath Placed During This Visit: yes Reason for Continuing Indwelling Catheter: Acute Urinary Retention or Obstruction Urinary Catheter Date of Insertion: 09/13/24 Urinary Catheter Time of Insertion: 22:02 Data 09/17/24 03:14 09/17/24 03:14 A&P Assessment and plan (1) Cellulitis of left lower extremity: (2) Lymphedema of left lower extremity: (3) Gram-negative bacteremia: Plan 78-year-old male with a past medical history of longstanding lymphedema presenting with acute onset swelling warmth and tenderness of the left lower extremity. He is febrile, leukocytosis of 19,000, elevated lactate, concern that he may be trending towards sepsis. No current signs of endorgan dysfunction at this present time, however high risk of progression. Suspect streptococcal etiology given quick onset of symptoms less than 24 hours. Started on empiric antibiotic treatment with piperacillin/tazobactam and IV vancomycin. Will switch IV vancomycin to linezolid 600 mg IV every 12 hours due to ongoing vancomycin shortage. Closely monitor for improvement over the next 24 to 48 hours Blood cultures taken in the emergency room prior to starting antibiotic treatment. High probability of bacteremia. DVT prophylaxis: Currently on Xarelto which we will continue Full code September 13, 2024. Blood culture reported positive for gram-negative rods overnight. Follow cultures for identification and susceptibility. Check blood culture with a.m. labs for clearance. Leukocytosis is stable. Cellulitis appears to be clinically improving. Continue treatment with piperacillin/tazobactam and linezolid and monitor for continued improvement over the next 24 to 48 hours. Resume home doses of Lasix. Continuing to hold spironolactone due to ASMITA. Patient was retaining 1200 cc of urine today. He had a straight cath. If retains again, to place a Hernandez catheter. Plan September 16, 2024. Blood culture now identified as Pasteurella multocida. Blood culture cleared subsequently from September 14, 2024. Will plan on total 14 days of antibiotics. Since sensitivity testing is not available, will transition to IV ceftriaxone 1 g every 24 hours to complete total duration of 14 days. Midline to facilitate the above. Wound culture growing coag positive Staphylococcus, likely Staph aureus, further identification pending. Continuing linezolid for this reason. Creatinine N/a today. recheck cr with am labs. Patient has cats at home. Instructed to keep the cat away from his foot. September 18, 2024. Patient received midline 09/16. Blood culture with Pasteurella multocida. Wound culture with MSSA and micrococcus species. Instructed to keep his animals away from his leg in the future. Discontinue linezolid. Most micrococcus species are susceptible to beta-lactam's therefore we will narrow antibiotic coverage to ceftriaxone 1 g IV every 24 hours at the time of discharge which should adequately cover all organisms discovered. Patient will need case management (not available on the weekend) to set up his home IV antibiotic infusions. He will need to set up with urology as an outpatient. ? Did have worsening back pain day 4 yesterday however he says that has resolved at this time. It is his chronic back pain. CT lumbar spine negative for fracture at this time. Patient awaiting home antibiotics set up ? We will flush the Hernandez and ensure bladder scan does not show any urinary retention prior to discharge. Attestations 2 Medical Necessity Statement*: Awaiting home antibiotics set up. Diagnoses Cellulitis of left lower extremity L03.116 Lymphedema of left lower extremity I89.0 Gram-negative bacteremia R78.81
[2024-09-18] MEDS: cefTRIAXone 1,000 mg SDV 1000 MG IVP (16:25)
--- NOTE | 2024-09-18 16:41 | P.DS_ITS ---
Discharge Providers Date of Admission: 09/12/24 14:20 Date of Discharge: September 18, 2024 Attending Provider at Admission: Ronak Arana MD Attending Provider at Discharge: Emmy Mckeon MD Primary Care Provider: Nils Ware MD Diagnoses at Discharge Discharge Diagnosis (1) Cellulitis of left lower extremity: Status: Acute (2) Lymphedema of left lower extremity: Status: Chronic (3) Gram-negative bacteremia: Status: Acute Reason for Visit Reason for Visit: left leg pain, swollen Physical Exam Urinary Catheter Management: Hernandez: Cath Placed During This Visit: yes Reason for Continuing Indwelling Catheter: Acute Urinary Retention or Obstruction Urinary Catheter Date of Insertion: 09/13/24 Urinary Catheter Time of Insertion: 22:02 Discharge Data Studies Completed and Pending Completed Studies During Hospitalization Category Date Time Status CT lumbar spine wo con* [id number] Routine Cat Scan 09/17/24 18:01 Completed XR chest 1V portable [id number] Urgent Exams 09/12/24 10:36 Completed CV. echo complete* [id number] Routine Ultrasound 09/14/24 11:49 Completed US venous duplex lower extremity LT [CV venous duplex Ultrasound 09/12/24 11:55 [place] [id number]] Stat Pending at discharge Category Date Time Status Basic Metabolic Panel AM LABS Lab 09/19/24 04:00 Ordered Blood Culture AM LABS Lab 09/14/24 05:43 Results Complete Blood Count w/Auto AM LABS Lab 09/19/24 04:00 Ordered Radiology Impressions Chest X-Ray 09/12/24 10:36 IMPRESSION: Suspect asymmetric elevation of the right hemidiaphragm with mild basilar atelectasis versus scarring, possible small right pleural effusion. Lumbar Spine CT 09/17/24 18:01 IMPRESSION: No acute findings. Degenerative changes at L2-L3 and L5-S1. Laboratory Results WBC 11.73 10^3/uL (3.29-11.43) H 09/17/24 03:14 RBC 4.64 10^6/uL (3.85-5.65) 09/17/24 03:14 Hgb 13.20 g/dL (11.27-16.99) 09/17/24 03:14 Hct 41.3 % (37-53) 09/17/24 03:14 MCV 89.0 fl (82-101) 09/17/24 03:14 MCH 28.4 pg (27-33) 09/17/24 03:14 MCHC 32.0 g/dL (30-55) 09/17/24 03:14 RDW 13.5 % (12.1-15.1) 09/17/24 03:14 Plt Count 266 10^3/cmm (157-399) 09/17/24 03:14 MPV 10.2 fL (7.4-10.4) 09/17/24 03:14 Neut % (Auto) 65.7 % 09/17/24 03:14 Lymph % (Auto) 19.4 % 09/17/24 03:14 Will % (Auto) 10.5 % 09/17/24 03:14 Eos % (Auto) 2.8 % 09/17/24 03:14 Baso % (Auto) 0.7 % 09/17/24 03:14 Neut # (Auto) 7.70 10^3/uL (1.8-7.7) 09/17/24 03:14 Lymph # (Auto) 2.3 10^3/uL (0.8-4.8) 09/17/24 03:14 Will # (Auto) 1.2 10^3/uL (0.2-0.9) H 09/17/24 03:14 Eos # (Auto) 0.3 10^3/uL (0.0-0.8) 09/17/24 03:14 Baso # (Auto) 0.1 10^3/uL (0.0-0.1) 09/17/24 03:14 Nucleated RBC % (auto) 0 % 09/17/24 03:14 Nucleated RBCs # 0.0 /100WBC 09/17/24 03:14 ESR 22 mm/hr (0-10) H 09/12/24 11:20 Sodium 140 mmol/L (136-145) 09/17/24 03:14 Potassium 4.0 mmol/L (3.5-5.1) 09/17/24 03:14 Chloride 105 mmol/L (98-107) 09/17/24 03:14 Carbon Dioxide 27 mmol/L (22-29) 09/17/24 03:14 Anion Gap 12.0 (5-19) 09/17/24 03:14 BUN 17 mg/dL (8-23) 09/17/24 03:14 Creatinine 1.2 mg/dL (0.7-1.2) 09/17/24 03:14 GFR Calculation Not Reportable 09/17/24 03:14 Glucose 103 mg/dL (65-115) 09/17/24 03:14 Estimat Average Glucose 117 09/13/24 06:03 Hemoglobin A1c 5.7 % (4.0-6.0) 09/13/24 06:03 Calculated Osmolality 292 mOsm/kg (285-295) 09/17/24 03:14 Lactic Acid 2.9 mmol/L (0.5-2.2) H 09/12/24 11:20 Lactic Acid (Sepsis) 1.9 mmol/L (0.5-2.2) 09/12/24 14:30 Calcium 8.8 mg/dL (8.5-10.5) 09/17/24 03:14 Phosphorus 3.2 mg/dL (2.5-4.5) 09/13/24 06:03 Magnesium 2.0 mg/dL (1.7-2.3) 09/13/24 06:03 Iron 83 ug/dL (59-158) 09/12/24 11:20 TIBC 264 mcg/dl 09/12/24 11:20 % Saturation 31.4 % (20-50) 09/12/24 11:20 Unsat Iron Binding 181 ug/dL (112-347) 09/12/24 11:20 Total Bilirubin 0.4 mg/dL (0.15-1.2) 09/17/24 03:14 AST 29 U/L (0-40) 09/17/24 03:14 ALT 25 U/L (0-41) 09/17/24 03:14 Alkaline Phosphatase 74 U/L (40-130) 09/17/24 03:14 Troponin T Baseline 36 ng/L (0-15) H 09/12/24 20:12 Troponin T 120 Minute 36.64 ng/L (0-15) H 09/12/24 22:03 Delta Troponin T 0.64 ABS# (0-10) 09/12/24 22:03 Troponin T Hi Sens 6Hr 38.26 ng/L (0-15) H 09/13/24 06:03 Troponin T Hi Sens 6Hr Delta 2.26 ng/L (0-12) 09/13/24 06:03 C-Reactive Protein 8.3 mg/L (0.0-4.9) H 09/12/24 11:20 Total Protein 6.3 g/dL (6.6-8.7) L 09/17/24 03:14 Albumin 3.0 g/dL (3.5-5.2) L 09/17/24 03:14 Globulin 3.3 g/dL (1.3-4.6) 09/17/24 03:14 Triglycerides 97 mg/dL (0-150) 09/13/24 06:03 Cholesterol 125 mg/dL (0-200) 09/13/24 06:03 LDL Cholesterol, Calc 72 mg/dL (50-129) 09/13/24 06:03 HDL Cholesterol 34 mg/dL (60-100) L 09/13/24 06:03 LDL/HDL Ratio 2.12 RATIO (0.00-3.22) 09/13/24 06:03 Cholesterol/HDL Ratio 3.68 mg/dL (1.0-5.00) 09/13/24 06:03 Vitamin B12 324 pg/mL (232-1245) 09/12/24 11:20 Folate 5.1 ng/mL (4.5-32.2) 09/13/24 06:03 Procalcitonin 0.85 ng/mL (0-0.5) H 09/13/24 06:03 TSH 1.80 uIU/mL (0.27-4.20) 09/12/24 11:20 Urine Color Yellow (Yellow) 09/12/24 13:18 Urine Appearance Clear (CLEAR) 09/12/24 13:18 Urine pH 6.0 (5-7) 09/12/24 13:18 Ur Specific [place] 1.012 (1.005-1.030) 09/12/24 13:18 Urine Protein Negative (Negative) 09/12/24 13:18 Urine Glucose (UA) Negative (Normal) 09/12/24 13:18 Urine Ketones Negative (Negative) 09/12/24 13:18 Urine Blood Negative (Negative) 09/12/24 13:18 Urine Nitrate Negative (Negative) 09/12/24 13:18 Urine Bilirubin Negative (Negative) 09/12/24 13:18 Urine Urobilinogen 1.0 mg/dL (Negative) 09/12/24 13:18 Ur Leukocyte Esterase Negative (Negative) 09/12/24 13:18 Amorphous Sediment Not Reportable 09/12/24 13:18 Nasal MRSA (PCR) Not detected (Negative) 09/12/24 18:35 Coronavirus (PCR) Negative (Negative) 09/12/24 12:31 Influenza A (PCR) Negative (Negative) 09/12/24 12:31 Influenza Type B (PCR) Negative (Negative) 09/12/24 12:31 RSV (PCR) Negative (Negative) 09/12/24 12:31 Vitals Last Vital Signs Temp 98.4 F 09/18/24 15:59 Pulse 73 09/18/24 15:59 Resp 18 09/18/24 15:59 BP 128/75 09/18/24 15:59 Pulse Ox 93 09/18/24 15:59 O2 Del Method Room Air 09/18/24 15:59 O2 Flow Rate 3 09/18/24 08:00 Discharge Plan Discharge Patient Disposition: Home Condition: Stable Prescriptions: No Action Xarelto 20 mg tablet 20 mg PO DAILY lovastatin 40 mg tablet 40 mg PO DAILY tamsulosin [Flomax] 0.4 mg capsule 0.4 mg PO DAILY nifedipine 60 mg tablet extended release 24hr 60 mg PO BID furosemide [Lasix] 40 mg tablet 40 mg PO DAILY albuterol sulfate [Ventolin HFA] 90 mcg/actuation HFA aerosol inhaler 1 puff inhalation DAILY hydrocodone-ibuprofen 7.5-200 mg tablet 1 tab PO Q4H spironolactone 25 mg tablet 25 mg PO DAILY Lumigan 0.01 % drops 1 drp ophthalmic (eye) QPM Referrals: [facility] [Outside] - 09/19/24 9:00 am (You will come in to the infusion center tomorrow morning at 09:00 for your MUNA infusion. They will give you a schedule for your remaining days at that appointment. On the weekend, you will receive your antibiotic at the outpatient surgery area. You can enter through the surgical services doors. Your appointment on Wednesday will be at 09:30. ) Nolberto Bourgeois [Referring] - Nils Ware MD [Primary Care Provider] - Patient Instructions: Opioid Safety Coding Level of Care Code Acute Code for [facility] Diagnoses Cellulitis of left lower extremity L03.116 Lymphedema of left lower extremity I89.0 Gram-negative bacteremia R78.81
[2024-09-18] MEDS: atorvastatin 40 mg Tablet PO (20:02)
[2024-09-18] MEDS: tamsulosin 0.4 mg Capsule PO (20:02)
[2024-09-18] MEDS: morphine IR 15 mg Tablet PO (23:34)
[2024-09-19] VITALS: BP 121/64; PULSE 56; RESP 16; TEMP 36.8; O2SAT 93
[2024-09-19 04:00] VITALS: BP 126/65; PULSE 54; RESP 19; TEMP 36.4; O2SAT 90
[2024-09-19 05:08] VITALS: PULSE 56
[2024-09-19 05:37] LABS: Basophils # 0.1 10^3/uL (0.0-0.1); Basophils % 0.7 %; Eosinophils # 0.5 10^3/uL (0.0-0.8); Eosinophils % 4.1 %; Hematocrit 42.9 % (37-53); Lymphocytes # 2.9 10^3/uL (0.8-4.8); Lymphocytes % 24.9 %; Mean Corpuscular HGB Conc 32.9 g/dL (30-55); Mean Corpuscular Hemoglobin 29.3 pg (27-33); Mean Platelet Volume 9.5 fL (7.4-10.4); Monocytes # 0.9 10^3/uL (0.2-0.9); Monocytes % 7.4 %; Neutrophils # 7.26 10^3/uL (1.8-7.7); Nucleated Red Blood Cells % 0 %; Platelet Count 296 10^3/cmm (157-399); Red Blood Count 4.82 10^6/uL (3.85-5.65); Red Cell Distribution Width 13.6 % (12.1-15.1); White Blood Count 11.71 10^3/uL (3.29-11.43)
[2024-09-19 05:59] LABS: Anion Gap 11.1 (5-19); Blood Urea Nitrogen 19 mg/dL (8-23); Calcium 9.5 mg/dL (8.5-10.5); Carbon Dioxide 28 mmol/L (22-29); Chloride 104 mmol/L (98-107); Creatinine Clr Calc Pharmacy 70.7843; Glucose 106 mg/dL (65-115); Osmolality Calculated 291 mOsm/kg (285-295); Potassium 4.1 mmol/L (3.5-5.1); Sodium 139 mmol/L (136-145)
[2024-09-19 07:39] VITALS: BP 122/62; PULSE 62; RESP 16; TEMP 36.6; O2SAT 94
[2024-09-19] MEDS: rivaroxaban 10 mg Tablet 20 MG PO (07:54)
[2024-09-19] MEDS: NIFEdipine ER (24 hr) 30 mg Tablet 60 MG PO (07:55)
[2024-09-19] MEDS: spironolactone 25 mg Tablet 50 MG PO (07:55)
[2024-09-19] MEDS: FUROsemide 40 mg Tablet PO (07:55)
[2024-09-19] MEDS: lisinopril 5 mg Tablet PO (07:55)
--- NOTE | 2024-09-19 08:40 | P.DS_ITS ---
Discharge Providers Date of Admission: 09/12/24 14:20 Date of Discharge: September 19, 2024 Attending Provider at Admission: Ronak Arana MD Attending Provider at Discharge: Emmy Mckeon MD Primary Care Provider: Nils Ware MD Diagnoses at Discharge Discharge Diagnosis (1) Cellulitis of left lower extremity: Status: Resolved (2) Lymphedema of left lower extremity: Status: Resolved (3) Gram-negative bacteremia: Status: Resolved Reason for Visit Reason for Visit: left leg pain, swollen Hospital Course Hospital Course Patient with longstanding lymphedema presented with acute swelling of left lower extremity. White count was 19,000 and elevated lactate. Concern for sepsis. Blood culture positive for gram-negative rods. Positive for Pasteurella multocida. Wound culture showed methicillin sensitive Staph aureus and micrococcus species. Patient stated that his animals were looking his legs. Initially was given linezolid which was later discontinued. Patient will be set up with ceftriaxone IV for another 10 days as an outpatient to complete course of treatment. Patient to follow-up with infectious disease as an outpatient after discharge. He did complain of low back pain for which CT lumbar spine was obtained which ruled out any pathological fractures at this time. Labs stable at discharge. Patient was placed on Lasix and spironolactone at time of discharge. Blood pressure stable. Vital stable. Discharged home in stable condition. All questions answered. Also for urinary retention Hernandez catheter was placed. He was discharged home with a Hernandez with output patient urology follow-up. Physical Exam Narrative: General: No acute distress, AO x3 HEENT: PERRLA, pupils bilaterally equal and reactive, pallors not present Chest: Normal vesicular breath sounds, no added sounds, equal good air entry bilaterally CVS: S1-S2 regular, no murmurs, no tachycardia, no gallops, no rubs Abdomen: Soft, nontender, no organomegaly, bowel sounds present, Hernandez catheter present. Neuro: No focal deficits, no facial deformity, AO x3, power 5/5 in all limbs Extremities: Left lower extremity cellulitis is resolved. Urinary Catheter Management: Hernandez: Cath Placed During This Visit: yes Reason for Continuing Indwelling Catheter: Other Urinary Catheter Date of Insertion: 09/13/24 Urinary Catheter Time of Insertion: 22:02 Discharge Data Studies Completed and Pending Completed Studies During Hospitalization Category Date Time Status CT lumbar spine wo con* [id number] Routine Cat Scan 09/17/24 18:01 Completed XR chest 1V portable [id number] Urgent Exams 09/12/24 10:36 Completed CV. echo complete* [id number] Routine Ultrasound 09/14/24 11:49 Completed US venous duplex lower extremity LT [CV venous duplex Ultrasound 09/12/24 11:55 [place] [id number]] Stat Radiology Impressions Chest X-Ray 09/12/24 10:36 IMPRESSION: Suspect asymmetric elevation of the right hemidiaphragm with mild basilar atelectasis versus scarring, possible small right pleural effusion. Lumbar Spine CT 09/17/24 18:01 IMPRESSION: No acute findings. Degenerative changes at L2-L3 and L5-S1. Laboratory Results WBC 11.71 10^3/uL (3.29-11.43) H 09/19/24 05:28 RBC 4.82 10^6/uL (3.85-5.65) 09/19/24 05:28 Hgb 14.10 g/dL (11.27-16.99) 09/19/24 05:28 Hct 42.9 % (37-53) 09/19/24 05:28 MCV 89.0 fl (82-101) 09/19/24 05:28 MCH 29.3 pg (27-33) 09/19/24 05:28 MCHC 32.9 g/dL (30-55) 09/19/24 05:28 RDW 13.6 % (12.1-15.1) 09/19/24 05:28 Plt Count 296 10^3/cmm (157-399) 09/19/24 05:28 MPV 9.5 fL (7.4-10.4) 09/19/24 05:28 Neut % (Auto) 62.0 % 09/19/24 05:28 Lymph % (Auto) 24.9 % 09/19/24 05:28 [place] % (Auto) 7.4 % 09/19/24 05:28 Eos % (Auto) 4.1 % 09/19/24 05:28 Baso % (Auto) 0.7 % 09/19/24 05:28 Neut # (Auto) 7.26 10^3/uL (1.8-7.7) 09/19/24 05:28 Lymph # (Auto) 2.9 10^3/uL (0.8-4.8) 09/19/24 05:28 [place] # (Auto) 0.9 10^3/uL (0.2-0.9) 09/19/24 05:28 Eos # (Auto) 0.5 10^3/uL (0.0-0.8) 09/19/24 05:28 Baso # (Auto) 0.1 10^3/uL (0.0-0.1) 09/19/24 05:28 Nucleated RBC % (auto) 0 % 09/19/24 05:28 Nucleated RBCs # 0.0 /100WBC 09/19/24 05:28 ESR 22 mm/hr (0-10) H 09/12/24 11:20 Sodium 139 mmol/L (136-145) 09/19/24 05:28 Potassium 4.1 mmol/L (3.5-5.1) 09/19/24 05:28 Chloride 104 mmol/L (98-107) 09/19/24 05:28 Carbon Dioxide 28 mmol/L (22-29) 09/19/24 05:28 Anion Gap 11.1 (5-19) 09/19/24 05:28 BUN 19 mg/dL (8-23) 09/19/24 05:28 Creatinine 1.1 mg/dL (0.7-1.2) 09/19/24 05:28 GFR Calculation Not Reportable 09/19/24 05:28 Glucose 106 mg/dL (65-115) 09/19/24 05:28 Estimat Average Glucose 117 09/13/24 06:03 Hemoglobin A1c 5.7 % (4.0-6.0) 09/13/24 06:03 Calculated Osmolality 291 mOsm/kg (285-295) 09/19/24 05:28 Lactic Acid 2.9 mmol/L (0.5-2.2) H 09/12/24 11:20 Lactic Acid (Sepsis) 1.9 mmol/L (0.5-2.2) 09/12/24 14:30 Calcium 9.5 mg/dL (8.5-10.5) 09/19/24 05:28 Phosphorus 3.2 mg/dL (2.5-4.5) 09/13/24 06:03 Magnesium 2.0 mg/dL (1.7-2.3) 09/13/24 06:03 Iron 83 ug/dL (59-158) 09/12/24 11:20 TIBC 264 mcg/dl 09/12/24 11:20 % Saturation 31.4 % (20-50) 09/12/24 11:20 Unsat Iron Binding 181 ug/dL (112-347) 09/12/24 11:20 Total Bilirubin 0.4 mg/dL (0.15-1.2) 09/17/24 03:14 AST 29 U/L (0-40) 09/17/24 03:14 ALT 25 U/L (0-41) 09/17/24 03:14 Alkaline Phosphatase 74 U/L (40-130) 09/17/24 03:14 Troponin T Baseline 36 ng/L (0-15) H 09/12/24 20:12 Troponin T 120 Minute 36.64 ng/L (0-15) H 09/12/24 22:03 Delta Troponin T 0.64 ABS# (0-10) 09/12/24 22:03 Troponin T Hi Sens 6Hr 38.26 ng/L (0-15) H 09/13/24 06:03 Troponin T Hi Sens 6Hr Delta 2.26 ng/L (0-12) 09/13/24 06:03 C-Reactive Protein 8.3 mg/L (0.0-4.9) H 09/12/24 11:20 Total Protein 6.3 g/dL (6.6-8.7) L 09/17/24 03:14 Albumin 3.0 g/dL (3.5-5.2) L 09/17/24 03:14 Globulin 3.3 g/dL (1.3-4.6) 09/17/24 03:14 Triglycerides 97 mg/dL (0-150) 09/13/24 06:03 Cholesterol 125 mg/dL (0-200) 09/13/24 06:03 LDL Cholesterol, Calc 72 mg/dL (50-129) 09/13/24 06:03 HDL Cholesterol 34 mg/dL (60-100) L 09/13/24 06:03 LDL/HDL Ratio 2.12 RATIO (0.00-3.22) 09/13/24 06:03 Cholesterol/HDL Ratio 3.68 mg/dL (1.0-5.00) 09/13/24 06:03 Vitamin B12 324 pg/mL (232-1245) 09/12/24 11:20 Folate 5.1 ng/mL (4.5-32.2) 09/13/24 06:03 Procalcitonin 0.85 ng/mL (0-0.5) H 09/13/24 06:03 TSH 1.80 uIU/mL (0.27-4.20) 09/12/24 11:20 Urine Color Yellow (Yellow) 09/12/24 13:18 Urine Appearance Clear (CLEAR) 09/12/24 13:18 Urine pH 6.0 (5-7) 09/12/24 13:18 Ur Specific [place] 1.012 (1.005-1.030) 09/12/24 13:18 Urine Protein Negative (Negative) 09/12/24 13:18 Urine Glucose (UA) Negative (Normal) 09/12/24 13:18 Urine Ketones Negative (Negative) 09/12/24 13:18 Urine Blood Negative (Negative) 09/12/24 13:18 Urine Nitrate Negative (Negative) 09/12/24 13:18 Urine Bilirubin Negative (Negative) 09/12/24 13:18 Urine Urobilinogen 1.0 mg/dL (Negative) 09/12/24 13:18 Ur Leukocyte Esterase Negative (Negative) 09/12/24 13:18 Amorphous Sediment Not Reportable 09/12/24 13:18 Nasal MRSA (PCR) Not detected (Negative) 09/12/24 18:35 Coronavirus (PCR) Negative (Negative) 09/12/24 12:31 Influenza A (PCR) Negative (Negative) 09/12/24 12:31 Influenza Type B (PCR) Negative (Negative) 09/12/24 12:31 RSV (PCR) Negative (Negative) 09/12/24 12:31 Vitals Last Vital Signs Temp 97.8 F 09/19/24 07:39 Pulse 62 09/19/24 07:39 Resp 16 09/19/24 07:39 BP 122/62 09/19/24 07:39 Pulse Ox 94 09/19/24 07:39 O2 Del Method Room Air 09/19/24 07:39 O2 Flow Rate 2 09/19/24 08:00 Discharge Plan Discharge Patient Disposition: Home Condition: Stable Prescriptions: New furosemide 40 mg Tablet See Rx Instructions .ROUTE .COMPLEX Qty: 45 0RF Rx Instructions: 40 mg orally in morning, 20 mg in evening. spironolactone 25 mg Tablet 50 mg PO DAILY Qty: 30 0RF potassium chloride 8 mEq capsule, extended release 8 meq PO DAILY Qty: 20 0RF Continued Xarelto 20 mg tablet 20 mg PO DAILY lovastatin 40 mg tablet 40 mg PO DAILY tamsulosin [Flomax] 0.4 mg capsule 0.4 mg PO DAILY nifedipine 60 mg tablet extended release 24hr 60 mg PO BID albuterol sulfate [Ventolin HFA] 90 mcg/actuation HFA aerosol inhaler 1 puff inhalation DAILY hydrocodone-ibuprofen 7.5-200 mg tablet 1 tab PO Q4H [place] 0.01 % drops 1 drp ophthalmic (eye) QPM Discontinued furosemide [Lasix] 40 mg tablet 40 mg PO DAILY spironolactone 25 mg tablet 25 mg PO DAILY Discharge Orders: Discharge Order (Routine); Ordered 09/19/24 Ordered By: Emmy Mckeon Other Ambulatory Orders: Basic Metabolic Panel (Routine) Timeframe: 4 Days Facility: [facility] - Location: Lab - Main Lab Ordered By: Emmy Mckeon Referrals: [facility] Infusion Center [Outside] - 09/20/24 9:00 am (You will come in to the infusion center tomorrow morning at 09:00 for your MUNA infusion. They will give you a schedule for your remaining days at that appointment. On the weekend, you will receive your antibiotic at the outpatient surgery area. You can enter through the surgical services doors. Your appointment on Wednesday will be at 09:30. ) Nolberto Bourgeois [Referring] - 7-10 days (We have notified your physician's clinic of the need for a follow-up appointment to be scheduled. If you have not heard from them within the next 2 business days, please call them directly. ) Nils Ware MD [Primary Care Provider] - 09/25/24 10:30 am Discharge Diet: Cardiac Discharge Activity: Resume usual activity Patient Instructions: Spironolactone (By mouth), Furosemide (By mouth), Potassium Chloride (By mouth), Hernandez Catheter Placement and Care (GEN), Opioid Safety Discharge Attestations Time Spent in Discharge Care*: greater than 30 min Quality Metrics Clinical Quality Measures [ No reported AMI, CVA or VTE this stay] Coding Level of Care Code Acute Code for Chg Fwd Diagnoses Cellulitis of left lower extremity L03.116 Lymphedema of left lower extremity I89.0 Gram-negative bacteremia R78.81
[2024-09-19 10:06] VITALS: BMI 41.3
[2024-09-19 11:31] VITALS: BP 138/69; PULSE 63; RESP 17; TEMP 36.4; O2SAT 92
--- NOTE | 2024-09-19 13:19 | PC.NURSE ---
Discussed discharge with patient. Discussed new medications, changed medications and stopped medications. Supplied patient with a leg driver bag and demonstrated how to change from the big driver bag to leg bag and demonstrated how to empty both bags. Discussed patient coming in to the infusion center for antibiotics. Went over follow up appointments and to call urology clinic if they have not notified him within 2 business days. Patient verbalized understading of all things discussed.
[2024-09-19 14:40] VITALS: BP 138/69; PULSE 63; RESP 17; TEMP 35.9; O2SAT 92
== END 2024-09-19 13:59 | disposition home or self-care (01) | DRG 603 ==
LOC: ER 13:48 → MEDSURG 14:21
PROVIDERS: Student in an Organized Health Care Education/Training Program; Admitting Provider Student in an Organized Health Care Education/Training Program; Emergency Provider Physician Assistant; PCP Family Medicine; Visit Provider Internal Medicine
DX: L03.116 Cellulitis of left lower limb (principal); Z68.41 Body mass index [BMI] 40.0-44.9, adult; I89.0 Lymphedema, not elsewhere classified; J45.909 Unspecified asthma, uncomplicated; E78.00 Pure hypercholesterolemia, unspecified; N40.0 Benign prostatic hyperplasia without lower urinary tract symptoms; I10 Essential (primary) hypertension; B95.61 Methicillin susceptible Staphylococcus aureus infection as the cause of diseases classified elsewhere; E66.01 Morbid (severe) obesity due to excess calories; I08.0 Rheumatic disorders of both mitral and aortic valves; G89.29 Other chronic pain; M54.9 Dorsalgia, unspecified; R33.9 Retention of urine, unspecified; Z79.01 Long term (current) use of anticoagulants; Z79.51 Long term (current) use of inhaled steroids; Z79.891 Long term (current) use of opiate analgesic; Z86.718 Personal history of other venous thrombosis and embolism; Z85.828 Personal history of other malignant neoplasm of skin; Z90.2 Acquired absence of lung [part of]
CPT/HCPCS: 0241U; 36415; 36569; 51702; 51798; 71045; 72131; 80048; 80053; 80061; 81003; 82607; 82746; 83036; 83540; 83550; 83605; 83735; 84100; 84145; 84443; 84484; 85025; 85651; 86140; 87040; 87070; 87075; 87077; 87150; 87186; 87205; 93005; 93306; 93971; 94640; 94664; 96365; 96367; 96375; 97116; 97161; 97530; 99285; C1751; J0696; J2020; J2270; J2405; J2543; J3370; J7030; J7613; J7626

== ENCOUNTER 2024-09-28 09:00 | Oncology outpatient (recurring) (ONCR) | payer MEDICARE, SELFPAY ==
--- OUTSIDE RECORDS SUMMARY | 2024-09-19 08:56 | XMS_ITS ---
Author Name Unknown Organization Unknown ALLERGIES AND ADVERSE REACTIONS No information ASSESSMENT No information CHIEF COMPLAINT No information Problems Date Problem Onsetdate Snomedcode 08/03/2024 12:00:00 AM Chronic thoracic b ack pain 08/03/2024 12:00:00 AM [id number] OBJECTIVE DATA No information PHYSICAL EXAMINATION No information TREATMENT PLAN No information RESULTS No information REVIEW OF SYSTEMS No information SUBJECTIVE DATA No information VITAL SIGNS No information MEDICATIONS No information
--- OUTSIDE RECORDS SUMMARY | 2024-09-19 08:56 | XMS_ITS ---
Author Name Unknown Organization [facility] ALLERGIES AND ADVERSE REACTIONS No information ASSESSMENT No information CHIEF COMPLAINT No information Immunizations Date Vaccine Dateadministered Timeadministered Dose Unit Cvxcode Administeredby 024 12:00 :00 AM Pneumococcal conjugate PCV20, polysaccharid e UOL401 conjugate, adjuvant, PF 04/19/2024 12:00:00 AM 1128 0.500 000 mL mL 216 [id number] OBJECTIVE DATA No information PHYSICAL EXAMINATION No information TREATMENT PLAN No information PROBLEMS No information RESULTS No information REVIEW OF SYSTEMS No information SUBJECTIVE DATA No information VITAL SIGNS No information MEDICATIONS No information
[2024-09-20] MEDS: cefTRIAXone 1,000 mg SDV 1000 MG IVP (09:13)
[2024-09-20 09:22] VITALS: BP 108/63; PULSE 66; RESP 18; TEMP 36.8; O2SAT 97
[2024-09-21] MEDS: cefTRIAXone 1,000 mg SDV 1000 MG IVP (09:23)
[2024-09-21 09:33] VITALS: BP 125/80; PULSE 77; RESP 18; TEMP 36.6; O2SAT 98
[2024-09-22] MEDS: cefTRIAXone 1,000 mg SDV 1000 MG IVP (09:17)
[2024-09-22 09:18] VITALS: BP 121/79; PULSE 70; RESP 16; TEMP 36.8; O2SAT 96
[2024-09-23 09:15] VITALS: BP 103/75; PULSE 72; RESP 18; TEMP 36.5; O2SAT 94
[2024-09-23] MEDS: cefTRIAXone 1,000 mg SDV 1000 MG IVP (09:38)
[2024-09-24] MEDS: cefTRIAXone 1,000 mg SDV 1000 MG IVP (09:27)
[2024-09-25] MEDS: cefTRIAXone 1,000 mg SDV 1000 MG IVP (10:06)
[2024-09-25 10:18] VITALS: BP 147/97; PULSE 69; RESP 18; TEMP 36.5; O2SAT 96
[2024-09-26 09:10] VITALS: BP 148/78; PULSE 81; RESP 17; TEMP 36.6; O2SAT 98
[2024-09-26] MEDS: cefTRIAXone 1,000 mg SDV 1000 MG IVP (09:13)
[2024-09-26 09:20] VITALS: BP 143/78; PULSE 81; RESP 18; TEMP 36.8; O2SAT 98
[2024-09-27] MEDS: cefTRIAXone 1,000 mg SDV 1000 MG IVP (10:37)
--- NOTE | 2024-09-27 15:25 | PC.NURSE ---
Removed pts midline from left upper arm. 12cm catheter removed, intact. Pt tolerated well. No s/s of redness or infection.
== END 2024-10-14 23:59 | disposition home or self-care (01) ==
PROVIDERS: PCP Family Medicine; Visit Provider Student in an Organized Health Care Education/Training Program
DX: Z53.9 Procedure and treatment not carried out, unspecified reason
CPT/HCPCS: 96365; 96374; J0696

== ENCOUNTER 2024-10-04 08:25 | Emergency (ER) | payer MEDICARE, SELFPAY ==
[2024-10-04 09:01] VITALS: BP 102/69; PULSE 71; RESP 24; TEMP 35.7; O2SAT 96; BMI 40.3
--- NOTE | 2024-10-04 09:31 | ED_ITS ---
HPI - Male Genitourinary 2 General: Chief complaint: Urogenital-Male Stated complaint: unable to pee Time Seen by Provider: 10/04/24 09:19 History of Present Illness: 78-year-old male who presents emergency room with difficulty urinating. He had a Hernandez catheter removed had been in place for 3 weeks because of urinary retention due to BPH. This was removed approximately 24 hours ago he says he been not been able to urinate much at all since then he is extremely uncomfortable. Denies any fever sweats or chills. Associated symptoms: Deny dysuria Related Data Home Medications Medication Instructions Recorded Confirmed albuterol sulfate 90 mcg/actuation 1 puff inhalation DAILY 01/12/20 10/04/24 aerosol inhaler (Ventolin HFA) lovastatin 40 mg tablet 40 mg PO DAILY 01/12/20 10/04/24 nifedipine 60 mg tablet,extended 60 mg PO BID 01/12/20 10/04/24 release 24 hr rivaroxaban 20 mg tablet (Xarelto) 20 mg PO DAILY 01/12/20 10/04/24 tamsulosin 0.4 mg capsule (Flomax) 0.4 mg PO DAILY 01/12/20 10/04/24 bimatoprost 0.01 % eye drops 1 drp ophthalmic (eye) QPM 09/12/24 10/04/24 ([place]um[place]) hydrocodone 7.5 mg-ibuprofen 200 1 tab PO Q4H 09/12/24 10/04/24 mg tablet finasteride 5 mg tablet 5 mg PO DAILY 10/04/24 10/04/24 ibuprofen 200 mg tablet 200 mg PO Q6H PRN Pain 10/04/24 10/04/24 spironolactone 50 mg tablet 50 mg PO DAILY 10/04/24 10/04/24 Previous Rx's Medication Instructions Recorded furosemide 40 mg tablet See Rx Instructions .Route 09/19/24 .COMPLEX #45 tabs potassium chloride 8 mEq 8 meq PO DAILY #20 caps 09/19/24 capsule,extended release ciprofloxacin HCl 500 mg tablet 500 mg PO BID #14 tabs 10/04/24 (Cipro) Allergies Allergy/AdvReac Type Severity Reaction Status Date / Time acetaminophen [From Tylenol] Allergy Unknown Verified 10/04/24 09:11 aspirin Allergy Unknown Verified 10/04/24 09:11 budesonide [From Symbicort] Allergy Unknown Verified 10/04/24 09:11 formoterol [From Symbicort] Allergy Unknown Verified 10/04/24 09:11 Review of Systems 2 Const: Denies: fever(s) or chills Card: Denies: chest pain Resp: Denies: dyspnea GI: Denies: abdominal pain : Denies: dysuria, urinary frequency or urinary urgency Musc: Denies: neck pain or back pain Skin/Breast: Denies: rash PFSH ED 2 PFSH: Medical History Mitral regurgitation and aortic stenosis Moderate MR moderate As Echo done 09/14/2024 Hypercholesteremia BPH (benign prostatic hyperplasia) History of cervical fracture Hypertension Asthma History of basal cell carcinoma DVT (deep venous thrombosis) Surgical History History of surgery Benign tumor removed from right lower leg History of tonsillectomy History of facial surgery Reconstruction Status post partial removal of lung Resection benign tumor Family History Father Heart disease Denies family history of Anesthesia complication Bleeding disorder Physical Exam 2 Const: GENERAL APPEARANCE: cooperative ORIENTATION/CONSCIOUSNESS: Yes awake, Yes oriented to person, Yes oriented to place and Yes oriented to time HENMT: COMMON NORMALS: normocephalic, atraumatic and hearing grossly normal bilaterally HEAD & SCALP: normocephalic and atraumatic Resp: COMMON NORMALS: normal respiratory effort, No retractions, No use of accessory muscles and clear to auscultation bilaterally AUSCULTATION: clear to auscultation bilaterally Cardio: COMMON NORMALS: regular rate, regular rhythm and No murmurs present (Cardio) RATE: regular rate RHYTHM: regular rhythm GI: COMMON NORMALS: Soft to palpation and No hepatosplenomegaly present A USCULTATION: Yes normoactive bowel sounds PALPATION: Yes Soft to palpation, No Tenderness to palpation present (GI), No Guarding due to palpation present (GI) and Yes No hepatosplenomegaly present Extremity: COMMON NORMALS: normal to inspection, capillary refill normal, no clubbing, cyanosis or edema, no calf tenderness and no pedal edema Neuro: SENSORIUM/ORIENTATION: Yes oriented to person, Yes oriented to place and Yes oriented to time Skin: COMMON NORMALS: no rashes or lesions noted GENERAL SKIN EXAM: no rashes or lesions noted Course 2 Vital Signs: Vital signs: Vital Signs Temperature 96.2 F L 10/04/24 09:01 Pulse Rate 58 L 10/04/24 11:41 Respiratory Rate 24 H 10/04/24 09:01 Blood Pressure 114/58 10/04/24 11:41 Pulse Oximetry 95 10/04/24 11:41 Oxygen Delivery Me thod Room Air 10/04/24 09:01 MDM - Male Medical Decision Making Acute urinary retention Hernandez replaced to get significant amount of output. UA did show signs of infection. No leukocytosis patient is otherwise feeling fine nontoxic in appearance. Will discharge patient home started on ciprofloxacin have him follow-up with his urologist. If he has fever or further symptoms should return to the emergency room Lab Data 10/04/24 10:21 10/04/24 10:21 Laboratory Results WBC 9.19 10^3/uL (3.29-11.43) 10/04/24 10:21 RBC 5.29 10^6/uL (3.85-5.65) 10/04/24 10:21 Hgb 14.70 g/dL (11.27-16.99) 10/04/24 10:21 Hct 45.6 % (37-53) 10/04/24 10:21 MCV 86.2 fl (82-101) 10/04/24 10:21 MCH 27.8 pg (27-33) 10/04/24 10:21 MCHC 32.2 g/dL (30-55) 10/04/24 10:21 RDW 13.7 % (12.1-15.1) 10/04/24 10:21 Plt Count 368 10^3/cmm (157-399) 10/04/24 10:21 MPV 9.9 fL (7.4-10.4) 10/04/24 10:21 Neut % (Auto) 66.4 % 10/04/24 10:21 Lymph % (Auto) 21.9 % 10/04/24 10:21 [place] % (Auto) 8.9 % 10/04/24 10:21 Eos % (Auto) 1.6 % 10/04/24 10:21 Baso % (Auto) 0.7 % 10/04/24 10:21 Neut # (Auto) 6.10 10^3/uL (1.8-7.7) 10/04/24 10:21 Lymph # (Auto) 2.0 10^3/uL (0.8-4.8) 10/04/24 10:21 [place] # (Auto) 0.8 10^3/uL (0.2-0.9) 10/04/24 10:21 Eos # (Auto) 0.2 10^3/uL (0.0-0.8) 10/04/24 10:21 Baso # (Auto) 0.1 10^3/uL (0.0-0.1) 10/04/24 10:21 Nucleated RBC % (auto) 0 % 10/04/24 10:21 Nucleated RBCs # 0.0 /100WBC 10/04/24 10:21 Sodium 137 mmol/L (136-145) 10/04/24 10:21 Potassium 4.5 mmol/L (3.5-5.1) 10/04/24 10:21 Chloride 102 mmol/L (98-107) 10/04/24 10:21 Carbon Dioxide 23 mmol/L (22-29) 10/04/24 10:21 Anion Gap 16.5 (5-19) 10/04/24 10:21 BUN 19 mg/dL (8-23) 10/04/24 10:21 Creatinine 1.5 mg/dL (0.7-1.2) H 10/04/24 10:21 GFR Calculation Not Reportable 10/04/24 10:21 Glucose 129 mg/dL (65-115) H 10/04/24 10:21 Calculated Osmolality 288 mOsm/kg (285-295) 10/04/24 10:21 Calcium 9.6 mg/dL (8.5-10.5) 10/04/24 10:21 Total Bilirubin 0.5 mg/dL (0.15-1.2) 10/04/24 10:21 AST 13 U/L (0-40) 10/04/24 10:21 ALT 15 U/L (0-41) 10/04/24 10:21 Alkaline Phosphatase 82 U/L (40-130) 10/04/24 10:21 Total Protein 7.6 g/dL (6.6-8.7) 10/04/24 10:21 Albumin 3.7 g/dL (3.5-5.2) 10/04/24 10:21 Globulin 3.9 g/dL (1.3-4.6) 10/04/24 10:21 Urine Color Yellow (Yellow) 10/04/24 09:20 Urine Appearance Cloudy (CLEAR) A 10/04/24 09:20 Urine pH 6.0 (5-7) 10/04/24 09:20 Ur Specific [place] 1.013 (1.005-1.030) 10/04/24 09:20 Urine Protein Negative (Negative) 10/04/24 09:20 Urine Glucose (UA) Negative (Normal) 10/04/24 09:20 Urine Ketones Negative (Negative) 10/04/24 09:20 Urine Blood Negative (Negative) 10/04/24 09:20 Urine Nitrate Negative (Negative) 10/04/24 09:20 Urine Bilirubin Negative (Negative) 10/04/24 09:20 Urine Urobilinogen 0.2 mg/dL (Negative) 10/04/24 09:20 Ur Leukocyte Esterase 2+ (Negative) A 10/04/24 09:20 Urine RBC 0-2 /hpf (0-2) 10/04/24 09:20 Urine WBC >100 /hpf (0-5) H 10/04/24 09:20 Ur Squamous Epith Cells 0-5 /hpf (0-5) 10/04/24 09:20 Amorphous Sediment Not Reportable 10/04/24 09:20 Urine Bacteria Exceeds /hpf (NONE) 10/04/24 09:20 Hyaline Casts 14.47 /lpf 10/04/24 09:20 No radiology studies performed this visit Discharge Plan Discharge Patient Disposition: Home Clinical Impression: Urinary tract infection, Acute retention of urine Condition: Stable Prescriptions: New ciprofloxacin HCl [Cipro] 500 mg tablet 500 mg PO BID Qty: 14 0RF No Action Xarelto 20 mg tablet 20 mg PO DAILY lovastatin 40 mg tablet 40 mg PO DAILY tamsulosin [Flomax] 0.4 mg capsule 0.4 mg PO DAILY nifedipine 60 mg tablet extended release 24hr 60 mg PO BID albuterol sulfate [Ventolin HFA] 90 mcg/actuation HFA aerosol inhaler 1 puff inhalation DAILY hydrocodone-ibuprofen 7.5-200 mg tablet 1 tab PO Q4H [place] 0.01 % drops 1 drp ophthalmic (eye) QPM furosemide 40 mg Tablet See Rx Instructions .ROUTE .COMPLEX Qty: 45 0RF Rx Instructions: 40 mg orally in morning, 20 mg in evening. potassium chloride 8 mEq capsule, extended release 8 meq PO DAILY Qty: 20 0RF ibuprofen 200 mg Tablet 200 mg PO Q6H PRN (Reason: Pain) finasteride 5 mg tablet 5 mg PO DAILY spironolactone 50 mg Tablet 50 mg PO DAILY Discharge Orders: Discharge ED (Routine); Ordered 10/04/24 Ordered By: Dionte Loyola Referrals: Nils Ware MD [Primary Care Provider] - Discharge Diet: Usual diet Discharge Activity: Increase activity as tolerated Patient Instructions: Opioid Safety, Pain Management Activity Restrictions/Additional Instructions: Thank you for choosing [facility] for your healthcare needs today. It is very important that you follow up as instructed or that you return to the Emergency Department should you have concerns or if your condition changes or worsens in any way. You are seen today for acute urinary retention. He also had signs of a bladder infection on the urinalysis. Recommended leaving the Hernandez in place will start on antibiotics 1 pill twice a day for 7 days. Follow-up with your urologist regarding length of time Hernandez catheter will be needed. Coding Level of Care Code ED Configuration Management Advisor for Bandar Thurman
[2024-10-04 10:30] VITALS: BP 127/73; PULSE 66; O2SAT 95
[2024-10-04 10:31] LABS: Basophils # 0.1 10^3/uL (0.0-0.1); Basophils % 0.7 %; Eosinophils # 0.2 10^3/uL (0.0-0.8); Eosinophils % 1.6 %; Hematocrit 45.6 % (37-53); Lymphocytes % 21.9 %; Mean Corpuscular HGB Conc 32.2 g/dL (30-55); Mean Corpuscular Hemoglobin 27.8 pg (27-33); Mean Corpuscular Volume 86.2 fl (82-101); Mean Platelet Volume 9.9 fL (7.4-10.4); Monocytes # 0.8 10^3/uL (0.2-0.9); Monocytes % 8.9 %; Neutrophils % 66.4 %; Nucleated Red Blood Cells % 0 %; Platelet Count 368 10^3/cmm (157-399); Red Blood Count 5.29 10^6/uL (3.85-5.65); Red Cell Distribution Width 13.7 % (12.1-15.1); White Blood Count 9.19 10^3/uL (3.29-11.43)
[2024-10-04 10:52] LABS: Bilirubin Urine Negative (Negative); Blood Urine Negative (Negative); Glucose Urine UA Negative (Normal); Ketones Urine Negative (Negative); Leukocyte Esterase Urine 2+ (Negative); Nitrate Urine Negative (Negative); Protein Urine Negative (Negative); Specific Gravity, Urine 1.013 (1.005-1.030); Urine Appearance Cloudy (CLEAR); Urine Color Yellow (Yellow); Urobilinogen Urine 0.2 mg/dL (Negative)
[2024-10-04 10:58] LABS: Alanine Aminotransferase 15 U/L (0-41); Albumin Level 3.7 g/dL (3.5-5.2); Alkaline Phosphatase 82 U/L (40-130); Anion Gap 16.5 (5-19); Aspartate Amino Transferase 13 U/L (0-40); Blood Urea Nitrogen 19 mg/dL (8-23); Calcium 9.6 mg/dL (8.5-10.5); Carbon Dioxide 23 mmol/L (22-29); Chloride 102 mmol/L (98-107); Globulin 3.9 g/dL (1.3-4.6); Glucose 129 mg/dL (65-115); Osmolality Calculated 288 mOsm/kg (285-295); Potassium 4.5 mmol/L (3.5-5.1); Sodium 137 mmol/L (136-145); Total Bilirubin 0.5 mg/dL (0.15-1.2); Total Protein 7.6 g/dL (6.6-8.7)
[2024-10-04 10:58] LABS: Bacteria Urine EXCEEDS /hpf; Hyaline Casts Urine 14.47 /lpf; RBC Urine 0-2 /hpf (0-2); Squamous Epithelial Cell Urine 0-5 /hpf (0-5); WBC Urine >100 /hpf (0-5)
[2024-10-04 11:00] VITALS: BP 131/78; PULSE 58; O2SAT 93
[2024-10-04 11:00] LABS: Add Urine Culture? Yes
[2024-10-04 11:03] LABS: Creatinine Clr Calc Pharmacy 52.8123
[2024-10-04 11:41] VITALS: BP 114/58; PULSE 58; O2SAT 95
== END 2024-10-04 11:58 | disposition home or self-care (01) ==
PROVIDERS: Emergency Provider Family Medicine; PCP Family Medicine
DX: N39.0 Urinary tract infection, site not specified (principal); R33.9 Retention of urine, unspecified; I10 Essential (primary) hypertension
CPT/HCPCS: 36415; 51702; 80053; 81001; 85025; 87077; 87086; 87186; 99283

== ENCOUNTER 2024-10-18 07:44 | Emergency (ER) | payer MEDICARE, SELFPAY ==
[2024-10-18 07:56] VITALS: BP 158/83; PULSE 71; RESP 22; TEMP 36.4; O2SAT 95; BMI 40.7
--- NOTE | 2024-10-18 08:35 | W.ED.MALEGU ---
HPI - Male Genitourinary General: Chief complaint: Urogenital-Male Stated complaint: accidently pull hose from catheter Time Seen by Provider: 10/18/24 08:01 History of Present Illness: 78-year-old male reports that he excellently got his Hernandez catheter hose caught when he was walking back to bed. He had a sharp pain at the base of the penis and suprapubic area. Pain has improved since then but he has seen a little bit of blood tinge to his urine in the Hernandez bag. The Hernandez catheter has been in place for approximately 5 weeks. No other complaints. Related Data Home Medications Medication Instructions Recorded Confirmed albuterol sulfate 90 mcg/actuation 1 puff inhalation DAILY 01/12/20 10/18/24 aerosol inhaler (Ventolin HFA) lovastatin 40 mg tablet 40 mg PO DAILY 01/12/20 10/18/24 nifedipine 60 mg tablet,extended 60 mg PO BID 01/12/20 10/18/24 release 24 hr rivaroxaban 20 mg tablet (Xarelto) 20 mg PO DAILY 01/12/20 10/18/24 tamsulosin 0.4 mg capsule (Flomax) 0.4 mg PO DAILY 01/12/20 10/18/24 bimatoprost 0.01 % eye drops 1 drp ophthalmic (eye) QPM 09/12/24 10/18/24 (Ted) hydrocodone 7.5 mg-ibuprofen 200 1 tab PO Q4H 09/12/24 10/18/24 mg tablet finasteride 5 mg tablet 5 mg PO DAILY 10/04/24 10/18/24 ibuprofen 200 mg tablet 200 mg PO Q6H PRN Pain 10/04/24 10/18/24 spironolactone 50 mg tablet 50 mg PO DAILY 10/04/24 10/18/24 cholecalciferol (vitamin D3) 50 50 mcg PO DAILY 10/18/24 10/18/24 mcg (2,000 unit) tablet (Vitamin D3) Previous Rx's Medication Instructions Recorded furosemide 40 mg tablet See Rx Instructions .Route 09/19/24 .COMPLEX #45 tabs potassium chloride 8 mEq 8 meq PO DAILY #20 caps 09/19/24 capsule,extended release Allergies Allergy/AdvReac Type Severity Reaction Status Date / Time acetaminophen [From Tylenol] Allergy Unknown Verified 10/04/24 09:11 aspirin Allergy Unknown Verified 10/04/24 09:11 budesonide [From Symbicort] Allergy Unknown Verified 10/04/24 09:11 formoterol [From Symbicort] Allergy Unknown Verified 10/04/24 09:11 Review of Systems General: Reports: Other (Hematuria, discomfort at the base of the penis) [facility] PFSH: Medical History Mitral regurgitation and aortic stenosis Moderate MR moderate As Echo done 09/14/2024 Hypercholesteremia BPH (benign prostatic hyperplasia) History of cervical fracture Hypertension Asthma History of basal cell carcinoma DVT (deep venous thrombosis) Surgical History History of surgery Benign tumor removed from right lower leg History of tonsillectomy History of facial surgery Reconstruction Status post partial removal of lung Resection benign tumor Family History Father Heart disease Denies family history of Anesthesia complication Bleeding disorder Physical Exam Const: COMMON NORMALS: no limitations, alert and well nourished EXAM LIMITATIONS: no altered mental status Neck/C-Spine: GENERAL: Yes normal visual inspection and Yes trachea midline GI: COMMON NORMALS: Soft to palpation and non-tender PALPATION: Yes Soft to palpation and No Guarding due to palpation present (GI) : OTHER: Hernandez bag has several 100 cc of slightly blood-tinged urine. It remains very translucent. The Hernandez catheter enters into the urethral meatus. It does slide forward and backwards; lower suspicion for Hernandez balloon being in the urethra. The suprapubic area is nontender. Extremity: COMMON NORMALS: normal to inspection Neuro: COMMON NORMALS: moves all extremities, no focal motor deficits and no sensory deficits noted SENSORIUM/ORIENTATION: Yes alert SPEECH: speech normal Psych: COMMON NORMALS: mental status grossly normal, Normal thought process present, cooperative, normal affect and speech normal SPEECH: Yes normal speech THOUGHT PROCESS: Normal thought process present Course Vital Signs: Vital signs: Vital Signs Temperature 97.5 F L 10/18/24 07:56 Pulse Rate 71 10/18/24 07:56 Respiratory Rate 22 H 10/18/24 07:56 Blood Pressure 158/83 10/18/24 07:56 Pulse Oximetry 95 10/18/24 07:56 Oxygen Delivery Me thod Room Air 10/18/24 07:56 MDM - Male Medical Decision Making Accidental traction on the Hernandez. The Hernandez balloon may or may not be in the start of the urethral tract. There is still some urine output in the bag although it is slightly blood-tinged. We deflated the Hernandez balloon and then made sure the Hernandez was all the way into the bladder before reinflating it. There was an additional 200 cc of urine that came out. The patient reports subjectively feeling much better. There could be minor injury to the urethral tract but the treatment would be to leave and a Hernandez catheter anyway. Therefore our plan is to discharge with the Hernandez catheter in place. No radiology studies performed this visit Discharge Plan Discharge Patient Disposition: Home Clinical Impression: Problem with Hernandez catheter Condition: Stable Prescriptions: No Action Xarelto 20 mg tablet 20 mg PO DAILY lovastatin 40 mg tablet 40 mg PO DAILY tamsulosin [Flomax] 0.4 mg capsule 0.4 mg PO DAILY nifedipine 60 mg tablet extended release 24hr 60 mg PO BID albuterol sulfate [Ventolin HFA] 90 mcg/actuation HFA aerosol inhaler 1 puff inhalation DAILY hydrocodone-ibuprofen 7.5-200 mg tablet 1 tab PO Q4H [place] 0.01 % drops 1 drp ophthalmic (eye) QPM furosemide 40 mg Tablet See Rx Instructions .ROUTE .COMPLEX Qty: 45 0RF Rx Instructions: 40 mg orally in morning, 20 mg in evening. potassium chloride 8 mEq capsule, extended release 8 meq PO DAILY Qty: 20 0RF ibuprofen 200 mg Tablet 200 mg PO Q6H PRN (Reason: Pain) finasteride 5 mg tablet 5 mg PO DAILY spironolactone 50 mg Tablet 50 mg PO DAILY cholecalciferol (vitamin D3) [Vitamin D3] 50 mcg (2,000 unit) Tablet 50 mcg PO DAILY Discharge Orders: Discharge ED (Routine); Ordered 10/18/24 Ordered By: Wayne Roque Referrals: Nils Ware MD [Primary Care Provider] - Patient Instructions: Hernandez Catheter Placement and Care (ED), How to Change a Catheter Drainage Bag (DC) Activity Restrictions/Additional Instructions: Make sure that your Hernandez catheter is draining appropriately. You may have some blood-tinged urine due to the trauma of getting the Hernandez hose caught. This should resolve over the next few days. Make an appointment to follow-up with your urologist in 1 to 2 weeks. On the other hand, if bleeding does not stop, the Hernandez is not draining, or you have systemic symptoms such as fever then go to the ER. Coding Level of Care Code ED Home Health Care Physician for Bandar Thurman
--- NOTE | 2024-10-18 08:42 | PC.NURSE ---
urine output since arrival approx 400mL
[2024-10-18 08:53] VITALS: BP 158/83; PULSE 88; O2SAT 93
== END 2024-10-18 09:05 | disposition home or self-care (01) ==
PROVIDERS: Emergency Provider Emergency Medicine; PCP Family Medicine
DX: T83.091A Other mechanical complication of indwelling urethral catheter, initial encounter (principal); Z85.828 Personal history of other malignant neoplasm of skin; I10 Essential (primary) hypertension; X58.XXXA Exposure to other specified factors, initial encounter
CPT/HCPCS: 99282

== ENCOUNTER 2025-01-12 13:01 | Emergency (ER) | payer MEDICARE, SELFPAY ==
[2025-01-12 13:08] VITALS: BP 149/72; PULSE 73; RESP 18; TEMP 36.3; O2SAT 94; BMI 42.3
--- NOTE | 2025-01-12 14:50 | W.ED.MALEGU ---
HPI - Male Genitourinary General: Chief complaint: Urogenital-Male Stated complaint: catheter issues Time Seen by Provider: 01/12/25 14:41 Source: patient Mode of arrival: ambulatory Limitations: no limitations History of Present Illness: Patient is a 79-year-old male presents to ED today with a complaint as Driver catheter is not draining. Patient states he emptied his bag this morning with around 800 cc of urine. He states following this he began noticing his Driver was not draining and was very painful. He is status post TURP procedure by Dr. Bourgeois 2 days ago. He has not noticed any bloody urine or clots. Driver was supposed to be left in until followup appointment next Wednesday and could be removed based on his pass/fail urine test . Onset (ago): hour(s) Duration: constant Severity: moderate Relieving factors: none Exacerbating factors: other (driver not draining) Associated symptoms: Reports no associated symptoms; Deny hematuria, nausea or vomiting Related Data Home Medications ?Medication ?Instructions ?Recorded ?Confirmed albuterol sulfate 90 mcg/actuation 1 puff inhalation DAILY 01/12/20 01/12/25 aerosol inhaler (Ventolin HFA) lovastatin 40 mg tablet 40 mg PO DAILY 01/12/20 01/12/25 nifedipine 60 mg tablet,extended 60 mg PO BID 01/12/20 01/12/25 release 24 hr rivaroxaban 20 mg tablet (Xarelto) 20 mg PO DAILY 01/12/20 01/12/25 tamsulosin 0.4 mg capsule (Flomax) 0.4 mg PO DAILY 01/12/20 01/12/25 bimatoprost 0.01 % eye drops 1 drp ophthalmic (eye) QPM 09/12/24 01/12/25 (Ted) hydrocodone 7.5 mg-ibuprofen 200 1 tab PO Q4H 09/12/24 01/12/25 mg tablet finasteride 5 mg tablet 5 mg PO DAILY 10/04/24 01/12/25 ibuprofen 200 mg tablet 200 mg PO Q6H PRN Pain 10/04/24 01/12/25 spironolactone 50 mg tablet 50 mg PO DAILY 10/04/24 01/12/25 cholecalciferol (vitamin D3) 50 50 mcg PO DAILY 12/04/24 02/28/25 mcg (2,000 unit) tablet (Vitamin D3) amoxicillin 875 mg-potassium 1 tab PO BID 01/12/25 01/12/25 clavulanate 125 mg tablet ciprofloxacin HCl 500 mg tablet 500 mg PO Q12H 01/12/25 01/12/25 oxycodone 5 mg tablet 5 mg PO Q6H PRN Pain 01/12/25 01/12/25 Previous Rx's ?Medication ?Instructions ?Recorded furosemide 40 mg tablet See Rx Instructions .Route 09/19/24 .COMPLEX #45 tabs Allergies Allergy/AdvReac Type Severity Reaction Status Date / Time acetaminophen (From Tylenol) Allergy Unknown Verified 10/04/24 09:11 aspirin Allergy Unknown Verified 10/04/24 09:11 budesonide (From Symbicort) Allergy Unknown Verified 10/04/24 09:11 formoterol (From Symbicort) Allergy Unknown Verified 10/04/24 09:11 Review of Systems Const: Denies: fever(s), chills, body aches, fatigue or malaise Card: Denies: chest pain Resp: Denies: dyspnea GI: Reports: abdominal pain (suprapubic pain); Denies: nausea, vomiting, diarrhea or change in bowel habits : Reports: genital pain (penile pain at site of cath) and other (driver cath not draining); Denies: flank pain or hematuria Musc: Denies: back pain PFSH ED PFSH: Medical History Mitral regurgitation and aortic stenosis Moderate MR moderate As Echo done 09/14/2024 Hypercholesteremia BPH (benign prostatic hyperplasia) History of cervical fracture Hypertension Asthma History of basal cell carcinoma DVT (deep venous thrombosis) Surgical History History of surgery Benign tumor removed from right lower leg History of tonsillectomy History of facial surgery Reconstruction Status post partial removal of lung Resection benign tumor Family History Father Heart disease Denies family history of Anesthesia complication Bleeding disorder Physical Exam Const: COMMON NORMALS: no limitations and well nourished GENERAL APPEARANCE: cooperative and in distress (uncomfortable) NUTRITIONAL APPEARANCE: obese (BMI 42.3) GI: COMMON NORMALS: Normal to inspection, nondistended, normoactive bowel sounds present, Soft to palpation and non-tender PALPATION: Yes Soft to palpation OTHER: no obvious palpable bladder : COMMON NORMALS: Yes no CVA tenderness BLADDER/KIDNEY EXAM: Yes no CVA tenderness OTHER: driver in place with no urine in tubing and very little urine in bag Back/Pelvis: COMMON NORMALS: no CVA tenderness Course Vital Signs: Vital signs: Vital Signs Temperature 97.4 F L 01/12/25 13:08 Pulse Rate 116 H 01/12/25 14:55 Respiratory Rate 18 01/12/25 14:55 Blood Pressure 153/94 01/12/25 15:30 Pulse Oximetry 98 01/12/25 14:55 Oxygen Delivery Me thod Room Air 01/12/25 13:08 MDM - Male Medical Decision Making Driver balloon was deflated and he immediately felt better. Wanted driver removed. This was performed at patient request. Since then he has urinated several times on his own without difficulty. He is declining we replaced the Driver. He states he has follow-up with Dr. Bourgeois next Wednesday. He will return to the emergency department for any urinary retention. Patient appears much more comfortable without the catheter. Blood work overall is unremarkable. His creatinine is at baseline. UA obviously with blood following a TURP. I would have a low suspicion for active infection. Findings most likely consistent following procedure. Medical Records I reviewed the patient's medical records. Lab Data I reviewed the patient's lab results. 01/12/25 15:42 01/12/25 15:42 Laboratory Results WBC 12.54 10^3/uL (3.29-11.43) H 01/12/25 15:42 RBC 5.48 10^6/uL (3.85-5.65) 01/12/25 15:42 Hgb 15.70 g/dL (11.27-16.99) 01/12/25 15:42 Hct 47.9 % (37-53) 01/12/25 15:42 MCV 87.4 fl (82-101) 01/12/25 15:42 MCH 28.6 pg (27-33) 01/12/25 15:42 MCHC 32.8 g/dL (30-55) 01/12/25 15:42 RDW 13.9 % (12.1-15.1) 01/12/25 15:42 Plt Count 179 10^3/cmm (157-399) 01/12/25 15:42 MPV 10.6 fL (7.4-10.4) H 01/12/25 15:42 Neut % (Auto) 79.5 % 01/12/25 15:42 Lymph % (Auto) 9.6 % 01/12/25 15:42 [place] % (Auto) 9.7 % 01/12/25 15:42 Eos % (Auto) 0.2 % 01/12/25 15:42 Baso % (Auto) 0.4 % 01/12/25 15:42 Neut # (Auto) 9.97 10^3/uL (1.8-7.7) H 01/12/25 15:42 Lymph # (Auto) 1.2 10^3/uL (0.8-4.8) 01/12/25 15:42 [place] # (Auto) 1.2 10^3/uL (0.2-0.9) H 01/12/25 15:42 Eos # (Auto) 0.0 10^3/uL (0.0-0.8) 01/12/25 15:42 Baso # (Auto) 0.1 10^3/uL (0.0-0.1) 01/12/25 15:42 Nucleated RBC % (auto) 0 % 01/12/25 15:42 Nucleated RBCs # 0.0 /100WBC 01/12/25 15:42 Sodium 139 mmol/L (136-145) 01/12/25 15:42 Potassium 4.3 mmol/L (3.5-5.1) 01/12/25 15:42 Chloride 105 mmol/L (98-107) 01/12/25 15:42 Carbon Dioxide 20 mmol/L (22-29) L 01/12/25 15:42 Anion Gap 18.3 (5-19) 01/12/25 15:42 BUN 25 mg/dL (8-23) H 01/12/25 15:42 Creatinine 1.4 mg/dL (0.7-1.2) H 01/12/25 15:42 GFR Calculation Not Reportable 01/12/25 15:42 Glucose 116 mg/dL (65-115) H 01/12/25 15:42 Calculated Osmolality 293 mOsm/kg (285-295) 01/12/25 15:42 Calcium 10.2 mg/dL (8.5-10.5) 01/12/25 15:42 Total Bilirubin 0.9 mg/dL (0.15-1.2) 01/12/25 15:42 AST 15 U/L (0-40) 01/12/25 15:42 ALT 11 U/L (0-41) 01/12/25 15:42 Alkaline Phosphatase 66 U/L (40-130) 01/12/25 15:42 Total Protein 7.7 g/dL (6.6-8.7) 01/12/25 15:42 Albumin 3.9 g/dL (3.5-5.2) 01/12/25 15:42 Globulin 3.8 g/dL (1.3-4.6) 01/12/25 15:42 Urine Color [place] (Yellow) A 01/12/25 13:19 Urine Appearance Cloudy (CLEAR) A 01/12/25 13:19 Urine pH 5.5 (5-7) 01/12/25 13:19 Ur Specific [place] 1.015 (1.005-1.030) 01/12/25 13:19 Urine Protein 2+ (Negative) A 01/12/25 13:19 Urine Glucose (UA) Negative (Normal) 01/12/25 13:19 Urine Ketones Trace (Negative) 01/12/25 13:19 Urine Blood 3+ (Negative) A 01/12/25 13:19 Urine Nitrate Negative (Negative) 01/12/25 13:19 Urine Bilirubin Negative (Negative) 01/12/25 13:19 Urine Urobilinogen 1.0 mg/dL (Negative) 01/12/25 13:19 Ur Leukocyte Esterase 2+ (Negative) A 01/12/25 13:19 Urine RBC >100 /hpf (0-2) H 01/12/25 13:19 Urine WBC 5-10 /hpf (0-5) H 01/12/25 13:19 Ur Squamous Epith Cells 0-4 /hpf (0-5) H 01/12/25 13:19 Amorphous Sediment Not Reportable 01/12/25 13:19 Urine Bacteria 1+ /hpf (NONE) H 01/12/25 13:19 No radiology studies performed this visit Discharge Plan Discharge Patient Disposition: Home Clinical Impression: Driver catheter problem Qualifiers: Encounter type: initial encounter Qualified Code(s): T83.9XXA - Unspecified complication of genitourinary prosthetic device, implant and graft, initial encounter Condition: Stable Prescriptions: No Action Xarelto 20 mg tablet 20 mg PO DAILY lovastatin 40 mg tablet 40 mg PO DAILY tamsulosin [Flomax] 0.4 mg capsule 0.4 mg PO DAILY nifedipine 60 mg tablet extended release 24hr 60 mg PO BID albuterol sulfate [Ventolin HFA] 90 mcg/actuation HFA aerosol inhaler 1 puff inhalation DAILY hydrocodone-ibuprofen 7.5-200 mg tablet 1 tab PO Q4H Lumigan 0.01 % drops 1 drp ophthalmic (eye) QPM furosemide 40 mg Tablet See Rx Instructions .ROUTE .COMPLEX Qty: 45 0RF Rx Instructions: 40 mg orally in morning, 20 mg in evening. ibuprofen 200 mg Tablet 200 mg PO Q6H PRN (Reason: Pain) finasteride 5 mg tablet 5 mg PO DAILY spironolactone 50 mg Tablet 50 mg PO DAILY cholecalciferol (vitamin D3) [Vitamin D3] 50 mcg (2,000 unit) Tablet 50 mcg PO DAILY oxycodone 5 mg tablet 5 mg PO Q6H PRN (Reason: Pain) ciprofloxacin HCl 500 mg tablet 500 mg PO Q12H amoxicillin-pot clavulanate 875-125 mg tablet 1 tab PO BID Discharge Orders: Discharge ED (Routine); Ordered 01/12/25 Ordered By: Jackie Mckeon Referrals: Nils Ware MD [Primary Care Provider] - Activity Restrictions/Additional Instructions: As we discussed, you have declined replacing your Driver catheter. This has been removed and you are able to urinate several times on your own thus far. Please follow-up with Dr. Bourgeois next Wednesday. At any point if you begin having difficulty with urination, burning with urination, inability to urinate, severe flank pain, vomiting, fevers-you need to seek medical reevaluation. Print Language: Vietnamese Coding Level of Care Code ED Card Fixer for Bandar Thurman
[2025-01-12 14:55] VITALS: BP 153/94; PULSE 116; RESP 18; O2SAT 98
[2025-01-12 15:10] VITALS: BP 153/94
[2025-01-12 15:30] VITALS: BP 153/94
[2025-01-12 15:31] LABS: Bilirubin Urine Negative (Negative); Blood Urine 3+ (Negative); Glucose Urine UA Negative (Normal); Ketones Urine Trace (Negative); Leukocyte Esterase Urine 2+ (Negative); Nitrate Urine Negative (Negative); Protein Urine 2+ (Negative); Specific Gravity, Urine 1.015 (1.005-1.030); Urine Appearance Cloudy (CLEAR); pH Urine 5.5 (5-7)
[2025-01-12 15:38] LABS: Urine Color Orange (Yellow)
--- NOTE | 2025-01-12 15:46 | PC.NURSE ---
this nurse assumed pt care from DAVID Carranza at 1540.
[2025-01-12 15:53] LABS: Basophils # 0.1 10^3/uL (0.0-0.1); Basophils % 0.4 %; Eosinophils % 0.2 %; Hematocrit 47.9 % (37-53); Lymphocytes # 1.2 10^3/uL (0.8-4.8); Lymphocytes % 9.6 %; Mean Corpuscular HGB Conc 32.8 g/dL (30-55); Mean Corpuscular Hemoglobin 28.6 pg (27-33); Mean Corpuscular Volume 87.4 fl (82-101); Mean Platelet Volume 10.6 fL (7.4-10.4); Monocytes # 1.2 10^3/uL (0.2-0.9); Monocytes % 9.7 %; Neutrophils # 9.97 10^3/uL (1.8-7.7); Neutrophils % 79.5 %; Nucleated Red Blood Cells % 0 %; Platelet Count 179 10^3/cmm (157-399); Red Blood Count 5.48 10^6/uL (3.85-5.65); Red Cell Distribution Width 13.9 % (12.1-15.1); White Blood Count 12.54 10^3/uL (3.29-11.43)
[2025-01-12 16:00] LABS: Add Urine Culture? Yes; Add Urine Microscopic? YES; Bacteria Urine 1+ /hpf; RBC Urine >100 /hpf (0-2); Squamous Epithelial Cell Urine 0-4 /hpf (0-5)
[2025-01-12 16:12] LABS: Alanine Aminotransferase 11 U/L (0-41); Albumin Level 3.9 g/dL (3.5-5.2); Alkaline Phosphatase 66 U/L (40-130); Anion Gap 18.3 (5-19); Aspartate Amino Transferase 15 U/L (0-40); Blood Urea Nitrogen 25 mg/dL (8-23); Calcium 10.2 mg/dL (8.5-10.5); Carbon Dioxide 20 mmol/L (22-29); Chloride 105 mmol/L (98-107); Globulin 3.8 g/dL (1.3-4.6); Glucose 116 mg/dL (65-115); Osmolality Calculated 293 mOsm/kg (285-295); Potassium 4.3 mmol/L (3.5-5.1); Sodium 139 mmol/L (136-145); Total Bilirubin 0.9 mg/dL (0.15-1.2); Total Protein 7.7 g/dL (6.6-8.7)
[2025-01-12 16:30] VITALS: BP 149/84; PULSE 88; RESP 18; O2SAT 93
[2025-01-12 16:42] VITALS: BP 129/98; PULSE 75; RESP 18; O2SAT 92
== END 2025-01-12 16:41 | disposition home or self-care (01) ==
PROVIDERS: Emergency Provider Physician Assistant; PCP Family Medicine
DX: T83.091A Other mechanical complication of indwelling urethral catheter, initial encounter (principal); I10 Essential (primary) hypertension; X58.XXXA Exposure to other specified factors, initial encounter; Z98.890 Other specified postprocedural states
CPT/HCPCS: 51798; 80053; 81001; 85025; 87086; 99283

== ENCOUNTER 2025-05-17 13:11 | Outpatient (CLI) | payer MEDICARE, SELFPAY ==
--- NOTE | 2025-05-17 13:16 | XR_ITS ---
WS: [id number] DEXA (DUAL ENERGY X-RAY ABSORPTIOMETRY) Bone mineral density was performed using a [employer] machine. HISTORY: DISORDER OF BONE DENSITY COMPARISON: 05/13/2023 Lumbar spine BMD (L1-L4): 1.165 g/cm2 T score: -0.5 Z score: -0.5 Total hip BMD: Left: 0.740 g/cm2. T score: -2.5 Z score: -2.0 Right: 0.807 g/cm2. T score: -2.0 Z score: -1.5 10 year probability of a major osteoporotic fracture is 10.7%. Compared to the prior study from 05/13/2023. Lumbar spine bone mineral density has increased by 1.8%. Bilateral hips bone mineral density has decreased by 6.5%. XR/XR DEXA axial skeleton* [id number] IMPRESSION: OSTEOPENIA based upon the WHO classification for females. Significant decrease in bone mineral density within the hips since the prior . No significant change in bone mineral density in the lumbar spine.
== END 2025-05-17 13:12 | disposition home or self-care (01) ==
PROVIDERS: PCP Family Medicine; Visit Provider Family Medicine
DX: M81.0 Age-related osteoporosis without current pathological fracture (principal); M85.80 Other specified disorders of bone density and structure, unspecified site
CPT/HCPCS: 77080

== ENCOUNTER → 2025-07-05 09:03 | Outpatient (BNVA) | payer MEDICARE, SELFPAY | PROVIDERS: PCP Family Medicine; Visit Provider Internal Medicine | DX: E21.0 Primary hyperparathyroidism (principal); M81.0 Age-related osteoporosis without current pathological fracture; N18.9 Chronic kidney disease, unspecified; I10 Essential (primary) hypertension | CPT/HCPCS: 80053; 82306; 84439; 84443; 99204 ==